=== PATIENT | male | born 1965 | race Caucasian/White ===

== ENCOUNTER → 2016-10-04 | Outpatient (CLI) | payer MEDICAID ==
--- NOTE | 2016-10-04 14:01 | CT ---
EXAMINATION TYPE: CT ChestAbdPelvis w con DATE OF EXAM: 10/04/2016 12:34 PM COMPARISON: Prior CT chest abdomen pelvis 12 April 2016 HISTORY: Colon cancer, observation and evaluation CT DLP: 2132.4 mGycm Automated exposure control for dose reduction was used. CONTRAST: CT scan of the chest, abdomen and pelvis is performed with Oral Contrast and with IV Contrast, patien t injected with 100 mL of Omnipaque 300. FINDINGS: LUNGS: The lungs are grossly clear, there is no concerning parenchymal mass or nodule identified. T here is no pleural effusion or pneumothorax seen. The tracheobronchial tree is patent. There is a po rt present in the right pectoral region with catheter extending via the internal jugular approach to the level of the cavoatrial junction MEDIASTINUM: There are no greater than 1 cm hilar or mediastinal lymph nodes. No pericardial effusi on is seen. AORTA: No significant abnormality is seen. OTHER: No additional significant abnormality is seen. LIVER/GB: Postop changes are stable. The low dense focus within the right lobe is unchanged. Gallblad magaly is absent. PANCREAS: Stable SPLEEN: No longer enlarged as on prior exam ADRENALS: Stable KIDNEYS: Unchanged, the thickening along Gerota's fascia has resolved. REPRODUCTIVE ORGANS: No gross abnormality seen. BOWEL: No significant abnormality is seen. FREE AIR: No Free Air visible. ASCITES: None seen. RETROPERITONEAL ADENOPATHY: No retroperitoneal adenopathy is seen. LYMPH NODES: No greater than 1 cm abdominal or pelvic lymph nodes are appreciated. URINARY BLADDER: No significant abnormality is seen. PELVIC ADENOPATHY: None visualized. OSSEOUS STRUCTURES: No significant abnormality is seen. IMPRESSION: Improvement in splenomegaly. Improved donnell size in the mediastinum.
== END | disposition home or self-care (01) ==
LOC: RADPROMAIN 10:20
PROVIDERS: ATTEND Internal Medicine Hematology & Oncology
DX: Z03.89 Encounter for observation for other suspected diseases and conditions ruled out (principal); R59.0 Localized enlarged lymph nodes; C18.7 Malignant neoplasm of sigmoid colon; R16.1 Splenomegaly, not elsewhere classified
CPT/HCPCS: 71260; 74177; Q9967

== ENCOUNTER → 2017-04-20 | Outpatient (CLI) | payer MEDICAID ==
--- NOTE | 2017-04-20 15:54 | CT ---
EXAMINATION TYPE: CT ChestAbdPelvis w con DATE OF EXAM: 04/20/2017 INDICATION: Patient has no complaints at time of service. Follow up study for history of colon/liver CA. COMPARISON: 10/04/2016, 04/12/2016 CT DLP: 1796 mGycm CONTRAST: Performed with Oral Contrast and with IV Contrast, patient injected with 100 mL of Omnipaque 300. TECHNIQUE: Axial images at 5 mm thick sections. Reconstructed images in the coronal plane. Delayed images through the kidneys. FINDINGS: CT CHEST: There is a port over the right chest. The tip is in the superior vena cava Portion of the thyroid visualized is normal. No suspicious lung nodules or focal infiltrates are present. There is a 1.6 cm transverse dimension density in the pretracheal space. Series 3 image 20. A pretrac heal lymph node measuring 2.1 cm is present. Series 3 image 24. There are some shotty lymph nodes at the aortopulmonic window. The ascending aorta diameter at the level of the main pulmonary artery is 3.1 cm. The main pulmonary artery diameter at the bifurcation is 2.[address] ABDOMEN: Liver: There is a very faint hypodensity within the liver this is smaller and poorly visualized in co mparison with a 2016 examination. This area is poorly visualized on 2017. Sella transverse dimension of approximately 0.7 cm currently which is smaller than the 1.2 cm 2016. Spleen: Normal Pancreas: Normal Adrenal glands: The adrenal glands are normal. Gallbladder: Not identified. Kidneys: No masses are evident. No hydronephrosis is present. No cysts are present. Delayed images were obtained through the kidneys, which remain unremarkable. Aorta: Vascular calcification is within the aorta. Inferior vena cava: Normal. CT PELVIS: Loops of bowel within the abdomen and pelvis are normal. There are loops of bowel which are incom pletely distended or lack oral contrast limiting their evaluation. Appendix: Normal as visualized. Urinary bladder: Normal. Genitourinary structures: Prostate is slightly prominent contains some calcification Osseous structures: No suspicious lytic or sclerotic lesions. IMPRESSIONS: 1. Enlarged mediastinal adenopathy, enlarging from comparison of October 04, 2016. 2. Diminished size of a hypodensity within the superior right lobe liver.
== END | disposition home or self-care (01) ==
LOC: RADPROMAIN 10:01
PROVIDERS: ATTEND Internal Medicine Hematology & Oncology
DX: C18.7 Malignant neoplasm of sigmoid colon (principal); K76.89 Other specified diseases of liver; R59.0 Localized enlarged lymph nodes
CPT/HCPCS: 71260; 74177; Q9967; J1642

== ENCOUNTER → 2017-06-09 | Outpatient (CLI) | payer MEDICAID ==
[~2017-06-09] MED LIST: ALTEPLASE 2 MG VIAL (CATHFLO) IV STA
--- NOTE | 2017-06-09 13:02 | CT ---
EXAMINATION TYPE: CT chest w con DATE OF EXAM: 06/09/2017 COMPARISON: NONE HISTORY: Colon and liver CA, possible mets, prior abn CT CT DLP: 617.6 mGycm Automated exposure control for dose reduction was used. CONTRAST: CT scan of the chest is performed with IV Contrast, patient injected with 100 mL of Omnipaque 300. FINDINGS: LUNGS: Right upper lobe pulmonary mass measuring 2.2 x 2.0 x 2.4 cm may reflect primary bronchogenic carcino ma versus metastatic disease. No additional pulmonary nodules or masses are seen with absolute certai nty. No evidence for volume loss, airspace consolidation or pleural effusion. MEDIASTINUM: High Right paratracheal lymph node is stable at 1.5 cm. New adjacent lymph node measurin g 2.0 cm right paratracheal region region. Low right paratracheal adenopathy measures 2.3 cm versus 2.1 cm previously. Stable small subcentimeter mediastinal lymph nodes. No pericardial effusion is see n. Thoracic aorta is of normal caliber. The heart is not enlarged. UPPER ABDOMEN: Partial hepatectomy changes. No discrete hepatic lesion seen. Hypertrophy of the cauda te lobe. OTHER: No additional significant abnormality is seen. IMPRESSION: 1. New right upper lobe pulmonary mass may reflect primary bronchogenic carcinoma versus solitary met astatic lesion. 2. New right paratracheal adenopathy. Previously described lymph nodes are either stable or minimall y enlarged.
== END | disposition home or self-care (01) ==
LOC: RADPROMAIN 10:55
PROVIDERS: ATTEND Internal Medicine Hematology & Oncology
DX: R91.1 Solitary pulmonary nodule (principal); R59.0 Localized enlarged lymph nodes; C18.7 Malignant neoplasm of sigmoid colon; G62.2 Polyneuropathy due to other toxic agents; T50.995A Adverse effect of other drugs, medicaments and biological substances, initial encounter; Z71.3 Dietary counseling and surveillance
CPT/HCPCS: 96374; 71260; 36415; Q9967; J1642; J2997

== ENCOUNTER 2017-07-13 12:12 | Day surgery (SDC) | payer MEDICAID ==
[2017-07-08 11:16] VITALS: BMI 35.2
[~2017-07-13 12:12] MED LIST changes: +ALBUTEROL NEB (CONC) 2.5 MG/0.5 ML INHALATION ONE; -ALTEPLASE 2 MG VIAL (CATHFLO) IV STA; +ATROPINE SULFATE 0.4 MG/ML 1 ML VIAL IM ONE; +LACTATED RINGERS 1,000 ML IV ONE; +LACTATED RINGERS 1,000 ML IV SCH; +LIDOCAINE 2% (PF) 20 MG/ML 2 ML AMP INHALATION ONE
[2017-07-13] MEDS ORDERED: LIDOCAINE 1% 20 ML VIAL (10MG/ML) FOR IV START INTRADERMA ONE (12:23)
[2017-07-13] MEDS ORDERED: LIDOCAINE 1% INJ 10MG/ML (20 ML MDV) ONE (14:16)
[2017-07-13] MEDS ORDERED: NEOSTIGMINE 1 MG/ML 10 ML VIAL ONE (14:16)
[2017-07-13] MEDS ORDERED: ROCURONIUM BROMIDE 10 MG/ML 10 ML VIAL IV ONE (14:16)
[2017-07-13] MEDS ORDERED: SUCCINYLCHOLINE CHLORIDE 100 MG/5 ML SYR IV ONE (14:16)
[2017-07-13] MEDS ORDERED: PROPOFOL 10 MG/ML 20 ML VIAL IV ONE (14:16)
[2017-07-13] MEDS ORDERED: MIDAZOLAM 2 MG/2 ML VIAL ONE (14:16)
[2017-07-13] MEDS ORDERED: GLYCOPYRROLATE 0.2 MG/ML 2 ML VIAL ONE (14:16)
--- NOTE | 2017-07-13 14:19 | CT ---
EXAMINATION TYPE: CT Chest wo con Veran Protocol DATE OF EXAM: 07/13/2017 COMPARISON: 06/09/2017 HISTORY: 51-year-old male Pre surgical scan TECHNIQUE: Contiguous axial scanning of the chest without IV contrast. Veran protocol was utilized w ith both inspiration and expiration for purposes of endobronchial navigation. Coronal and sagittal re constructions performed. CT DLP: 604 mGycm Automated exposure control for dose reduction was used. FINDINGS: Radiofrequency airways are placed over the mid and left chest. Right anterior chest wall injection po rt with catheter tip at the cavoatrial junction. Heart normal size without pericardial effusion. Aorta normal caliber with conventional arch vessel branching anatomy. Redemonstrated mediastinal lymphadenopathy measuring up to 2.2 cm in the paratracheal region. Right upper lobe mass measures 3.2 x 2.0 cm versus 2.7 x 1.6 cm on 06/09/2017. No suspicious satellite nodule seen. No consolidation or pleural effusion. Status post right hepatectomy with hypertrophy of the left liver lobe and caudate. Adrenal glands are clear. Bones: No osseous destructive process. IMPRESSION: 1. IMAGING PERFORMED FOR PURPOSES OF ENDOBRONCHIAL NAVIGATION. 2. THE PATIENT'S RIGHT UPPER LOBE MASS IS SLIGHTLY LARGER NOW MEASURING 3.2 CM VERSUS 2.7 CM ON 2017. 3. REDEMONSTRATED RIGHT PARATRACHEAL LYMPHADENOPATHY MEASURING UP TO 2.2 CM.
[2017-07-13 15:32] VITALS: TEMP 97.4
--- NOTE | 2017-07-13 15:54 | XR ---
EXAMINATION TYPE: XR chest 1V portable DATE OF EXAM: 07/13/2017 COMPARISON: CT chest 07/13/2017 HISTORY: Status post transbronchial biopsies right upper lobe TECHNIQUE: Single frontal view of the chest is obtained. FINDINGS: Patient is rotated. There is no pneumothorax or pleural effusion. Lung volumes are low. Car diomediastinal silhouette, pulmonary vascularity and shaina not significantly changed. Patchy density p ersists in the right upper lobe. There are overlying cardiac leads. Port-A-Cath is noted in the right pectoral region, distal tip at the cavoatrial junction level. IMPRESSION: No evident complication status post right upper lobe lung biopsy.
[2017-07-13 16:36] VITALS: RESP 18
[2017-07-13 16:38] VITALS: BP 120/82; PULSE 71
[2017-07-13 18:48] LABS: Appearance,BF Hazy; Color,BF Colorless; Nucleated Cells, Body Fluid 25 /uL; RBC, Body Fluid 655 /uL
[2017-07-13 18:50] LABS: Mononuclear WBC,Body Fluid 90 %; Polynuclear WBC,Body Fluid 10 %
--- NOTE | 2017-07-13 19:14 | PCN ---
PROCEDURE NOTE PROCEDURE: Navigational bronchoscopy. REASON FOR DOING PROCEDURE/PREOPERATIVE DIAGNOSIS: New right upper lobe mass. POSTOPERATIVE DIAGNOSIS: New right upper lobe mass. DESCRIPTION OF PROCEDURE: There was informed consent. There was universal timeout. The patient's procedure was done on the operating room side of [facility]. It was done under general anesthesia. The anesthesiologists were LEONEL and Dr. Valadez. The operators were Dr. Crow and Dr. Baez. It was done in room #1. After the patient was adequately sedated and under the effects of general anesthesia, the bronchoscope was inserted through the bronchoscope adapter connected to the endotracheal tube. We were able to localize the lesion via the Veran electromagnetic navigational bronchoscope. The lesion was in the right upper lobe. Multiple transbronchial biopsies were done initially. Next, needle biopsies were done in the right upper lobe. Finally, there was brushing in the right upper lobe. We completed the procedure by doing washes in the right upper lobe. The patient tolerated the procedure well. There was minimal bleeding. There were no immediate complications. A chest x-ray was ordered. The patient will be recovered. The specimens will go to the laboratory for analysis. Specimens include brushes, right upper lobe, washings, right upper lobe, transbronchial biopsies, right upper lobe, and needle biopsies, right upper lobe. MMODL / IJN: [id number] /
== END 2017-07-13 17:04 | disposition home or self-care (01) ==
LOC: ORWHC2ENDO 12:12
PROVIDERS: ATTEND Internal Medicine Critical Care Medicine
DX: R91.8 Other nonspecific abnormal finding of lung field (principal); R59.0 Localized enlarged lymph nodes; Z98.0 Intestinal bypass and anastomosis status; Z90.49 Acquired absence of other specified parts of digestive tract; Z85.038 Personal history of other malignant neoplasm of large intestine; Z85.05 Personal history of malignant neoplasm of liver
CPT/HCPCS: 94640; 87798 ×3; 87496; 87498; 87529; 88104; 88108; 88305; 89050; 87252; 87502; 87634; 87070; 87205; 87116; 87102; 87206; 71045; 71250; 31629; 31623; 31627; J2250; J0461; J2710; J2001 ×2; J0330; J2704; 31624; 31625

== ENCOUNTER → 2017-07-23 | Outpatient (CLI) | payer MEDICAID ==
--- NOTE | 2017-07-25 18:05 | PE ---
EXAMINATION TYPE: PET CT fusion skull to thigh DATE OF EXAM: 07/23/2017 COMPARISON: CT chest 07/13/2017 Prior PET/CT: There are no prior PET CTs at this location available. No p riors are in PACS or [place]. HISTORY: Colon cancer TECHNIQUE: Following the intravenous administration of 11.878 mCi of F-18 FDG, whole body images are performed from the skull base to the midthigh. Images are reviewed on the computer in the coronal, axial, and sagittal planes. Reconstructed rotating images are created on independent workstation and reviewed on the computer. A localization and attenuation correction CT is performed in conjunction with the PET scan. DLP: 515.65 mGycm SCAN: Ordered as Subsequent. Blood glucose: 77 mg/dL Average Mediastinum SUV: 1.72 Average Liver SUV: 2.77 FINDINGS: NECK: No abnormal uptake THORAX: Mass in the right upper lobe has an SUV value of 8.21. PET image 86. There is vague uptake within an enlarged right paratracheal lymph node. This has elevated SUV of 4.38 suspicious for metastatic disease. Uptake is also noted in the second enlarged pretracheal lymph nod e measuring 3.5 also suspicious for metastatic disease. ABDOMEN: No abnormal uptake PELVIS: No abnormal uptake OSSEOUS STRUCTURES: No abnormal uptake LOCALIZATION CT: There is a 2.2 cm lymph node in the pretracheal space. An adjacent 1.9 cm lymph node is present. The ascending thoracic aorta at the level of main pulmonary artery is 3.2 cm. In the bif urcation is 2.2 cm. There is a right upper lobe mass which and mediastinal lymph nodes is estimated t o measure 4.2 x 2.1 cm. Coronary artery calcification is present. COMPARISON: Right upper lobe mass is stable from the 07/13/[address] Right paratracheal lymp hadenopathy is stable. IMPRESSION: 1. Uptake within the solitary pulmonary nodule in the right midlung compatible with neoplasm. Primary and metastatic lesions could be considered. 2. Milder uptake is within the enlarged lymph nodes within the mediastinum suspicious for metastatic disease.
== END | disposition home or self-care (01) ==
LOC: RADPETMAIN 11:08
PROVIDERS: ATTEND Internal Medicine Hematology & Oncology
DX: C18.7 Malignant neoplasm of sigmoid colon (principal); R91.1 Solitary pulmonary nodule; R59.1 Generalized enlarged lymph nodes
CPT/HCPCS: 78815; A9552

== ENCOUNTER → 2017-08-31 | Outpatient (CLI) | payer MEDICAID ==
[2017-08-31 14:47] VITALS: BP 119/78; PULSE 91; RESP 18; TEMP 97.9
[2017-08-31 15:02] LABS: Basophils % (A) 1 %; Eosinophils # (A) 0.2 k/uL (0-0.7); Eosinophils % (A) 3 %; HCT 49.8 % (39.0-53.0); HGB 16.9 gm/dL (13.0-17.5); Lymphocytes # (A) 2.3 k/uL (1.0-4.8); Lymphocytes % (A) 42 %; MCH 31.7 pg (25.0-35.0); MCV 93.1 fL (80.0-100.0); Mean Platelet Volume 7.8; Monocytes # (A) 0.5 k/uL (0-1.0); Monocytes % (A) 8 %; Neutrophils # (A) 2.4 k/uL (1.3-7.7); Neutrophils % (A) 43 %; Platelet Count 194 k/uL (150-450); RBC 5.35 m/uL (4.30-5.90); RDW 12.8 % (11.5-15.5); WBC 5.5 k/uL (3.8-10.6)
== END | disposition home or self-care (01) ==
LOC: PROCWHC3 14:21
PROVIDERS: ATTEND Internal Medicine Hematology & Oncology
DX: C18.7 Malignant neoplasm of sigmoid colon (principal)
CPT/HCPCS: 85025; 36591; J1642

== ENCOUNTER → 2017-11-25 | Outpatient (CLI) | payer MEDICAID ==
[2017-11-25 11:34] LABS: Blood Urea Nitrogen 19 mg/dL (9-20)
--- NOTE | 2017-11-25 13:30 | CT ---
EXAMINATION TYPE: CT ChestAbdPelvis w con DATE OF EXAM: 11/25/2017 COMPARISON: PET/CT July 23, 2017. CT chest abdomen and pelvis April 20, 2017. HISTORY: Patient has no complaints with history of color CA with mets to the liver and lung. Post rig ht-sided hepatectomy. CT DLP: 2034.2 mGycm. Automated Exposure Control for Dose Reduction was Utilized. CONTRAST: CT scan of the thorax, abdomen and pelvis is performed with oral and with IV Contrast, patient inject ed with 100 mL of Isovue 300. FINDINGS: LUNGS: There is a smaller slightly lobulated lesion right suprahilar level measuring 1.9 x 0.6 cm axi al image 24 significantly improved from PET/CT with measurements of approximately 4.2 x 2.1 cm axial image 87. No new nodules or masses are present. No pleural effusion or pneumothorax is identified. MEDIASTINUM: There is persistent but diminished size right paracarinal lymph node measuring 1.2 x 1.1 cm axial image 23 versus roughly 1.8 x 1.9 cm axial image 87 PET/CT. Superior to this right paratra cheal lymph node measures 1.2 x 0.9 cm current study image 20 versus 2.8 x 1.[address] study image 80. Prominent subcentimeter posterior right paratracheal lymph node superior to this axial imag e 14 is stable. No new greater than 1 cm adenopathy is present. No cardiomegaly or pericardial effusi on is seen. OTHER: There is stable right internal jugular Mediport catheter. LIVER/GB: Surgical changes from partial right-sided liver resection or hepatectomy are redemonstrated . Gallbladder is not visualized and presumed surgically absent. PANCREAS: No significant abnormality is seen. SPLEEN: No significant abnormality is seen. ADRENALS: No significant abnormality is seen. KIDNEYS: No significant abnormality is seen. BOWEL: Oral contrast reaches level of anus. There is somewhat redundant sigmoid colon. There is no landin spicious small or large bowel dilatation. Normal contrast-filled terminal ileum is identified. Append ix is unremarkable from posterior aspect of cecum. Nonspecific soft tissue medial aspect of cecum axi al image 87 could reflect residual tumor has not been treated versus prominence from incomplete diste ntion, correlate clinically. GENITAL ORGANS: No gross abnormality seen. LYMPH NODES: No greater than 1cm abdominal or pelvic lymph nodes are appreciated. OSSEOUS STRUCTURES: Some facet arthropathy lower lumbar levels is redemonstrated. OTHER: No significant additional abnormality is seen. IMPRESSION: Positive treatment response in the thorax as detailed above.
== END | disposition home or self-care (01) ==
LOC: RADPROMAIN 10:55
PROVIDERS: ATTEND Internal Medicine Hematology & Oncology
DX: C18.7 Malignant neoplasm of sigmoid colon (principal)
CPT/HCPCS: 82565; 84520; 71260; 74177; J1642; Q9967

== ENCOUNTER → 2018-02-23 | Outpatient (CLI) | payer MEDICAID ==
[2018-02-23 11:51] LABS: Blood Urea Nitrogen 14 mg/dL (9-20)
--- NOTE | 2018-02-23 14:45 | CT ---
EXAMINATION TYPE: CT chest w con DATE OF EXAM: 02/23/2018 COMPARISON: 11/25/2017 HISTORY: colon ca, lung mass CT DLP: 756 mGycm, Automated exposure control for dose reduction was used. CONTRAST: Performed injected with 100 mL of Isovue 300. TECHNIQUE: Axial images were obtained at 5 mm thick sections. Reconstructed images are reviewed on [employer] computer in the coronal plane. FINDINGS: Portion of the thyroid visualized is normal. There is a 1.3 x 1.3 cm lobular density in the right apex. Series 3 image 19. This is enlarged from p rior. There is an enlarged pretracheal lymph node measuring 1.1 cm. Series 3 image 20. This was prese nt previously. Remaining mediastinal adenopathy is not enlarged. No suspicious hilar adenopathy is evident. Axillar y regions appear normal. The ascending aorta diameter at the level of the main pulmonary artery is 3. 0 cm. The main pulmonary artery diameter at the bifurcation is 2.[address] sections are obtained through the upper abdomen. Abdomen is essentially unremarkable. Mild to moderate fatty infiltration liver may be present. IMPRESSIONS: 1. Enlarging lobular nodule right apex suspicious for enlarging metastasis. 2. Spinal lymph node present previously slightly less prominent than prior.
== END | disposition home or self-care (01) ==
LOC: RADPROMAIN 10:37
PROVIDERS: ATTEND Internal Medicine Hematology & Oncology
DX: C18.7 Malignant neoplasm of sigmoid colon (principal); R91.1 Solitary pulmonary nodule
CPT/HCPCS: 82565; 84520; 71260; 36415; J1642; Q9967

== ENCOUNTER → 2018-02-25 | Outpatient (CLI) | payer MEDICAID ==
--- NOTE | 2018-02-26 14:58 | PE ---
EXAMINATION TYPE: PET CT fusion skull to thigh DATE OF EXAM: 02/25/2018 COMPARISON: CT chest abdomen pelvis 11/25/2017 Prior PET/CT: 07/23/2017 HISTORY: Colon cancer, liver cancer TECHNIQUE: Following the intravenous administration of 12.33 mCi of F-18 FDG, whole body images are performed from the skull base to the midthigh. Images are reviewed on the computer in the coronal, a xial, and sagittal planes. Reconstructed rotating images are created on independent workstation and reviewed on the computer. A localization and attenuation correction CT is performed in conjunction with the PET scan. DLP: 531.79 mGycm SCAN: Subsequent Blood glucose: 103 mg/dL Average Mediastinum SUV: 1.39 Average Liver SUV: 2.23 FINDINGS: NECK: There is some uptake within the region of the distal optic nerves bilaterally. This is greater on the right with an SUV value of 8.73. On the left this measures approximately 7.13. PET image 17. Recommend MRI with contrast of the orbits for closer evaluation. No corresponding abnormality on the CT examination is evident. Radiotracer distribution through the neck is otherwise normal. THORAX: There is a focus of radiotracer accumulation within the irregular soft tissue density of the right upper lobe. This has an SUV value of 5.86 compatible with neoplasm. PET image 95. Previous SUV value of 8.21. No suspicious mediastinal uptake is evident. ABDOMEN: No abnormal uptake. No suspicious hepatic uptake to suggest primary or metastatic liver canc er by PET scan. PELVIS: No abnormal uptake OSSEOUS STRUCTURES: No abnormal uptake LOCALIZATION CT: The mass within the right suprahilar region measures 1.0 x 1.4 cm on mediastinal win dows. Suspicious enlarged mediastinal evident. Ascending thoracic aorta at the main pulmonary artery is 3.2 cm. Main pulmonary bifurcation is 2.8 cm. Small subcarinal lymph node measuring 0.7 cm does no t have abnormal uptake. Note is made of a periumbilical hernia containing loops of colon. Wider addit ional anterior wall hernias present containing loop of colon inferior to the umbilicus. COMPARISON: Right apical mass is increased in size from the comparison of November 25, 2017. The mass at the right apex is significantly diminished from the 07/23/2017 PET scan. Uptake within the posterior r ibs may have been present previously. IMPRESSION: 1. Abnormal uptake within the right suprahilar lung. This is diminished in size and intensity from th e comparison of June 2017. 2. There appears to be some focal uptake within the distal optic nerves bilaterally of uncertain clin ical significance. Recommend MRI of the orbits with contrast for additional evaluation.
== END | disposition home or self-care (01) ==
LOC: RADPETMAIN 07:56
PROVIDERS: ATTEND Internal Medicine Hematology & Oncology
DX: C18.7 Malignant neoplasm of sigmoid colon (principal); R94.2 Abnormal results of pulmonary function studies
CPT/HCPCS: 78815; A9552

== ENCOUNTER → 2018-10-03 | Outpatient (CLI) | payer MEDICAID ==
--- NOTE | 2018-10-04 11:16 | CT ---
EXAMINATION TYPE: CT ChestAbdPelvis w con DATE OF EXAM: 10/03/2018 COMPARISON: Outside CT dated July 24, 2018 HISTORY: follow up colon cancer CT DLP: 2019.4 mGycm CONTRAST: CT scan of the chest, abdomen and pelvis is performed with Oral Contrast and with IV Contrast, patien t injected with 100 mL of [address]vue 300. [address] Chest: LUNGS: Right upper lobectomy changes redemonstrated. Postoperative low-density fluid collection adjac ent to the surgical clips right upper lobe persists and is smaller in size and currently measures 2.6 x 2.4 cm versus 6.6 x 5.0 x 6.2 cm previously. No new nodules or masses are demonstrated. Mild hyper inflation left lung. MEDIASTINUM: Right paratracheal adenopathy persists and measures 1.5 cm in greatest dimension versus 1.6 cm previously. Right tracheobronchial lymph node measures 1.0 cm versus 8 mm previously. Subcarin al lymph node measures 8 mm short axis versus 1.4 cm previously. HILAR STRUCTURES: No evidence for mass. No hilar adenopathy is appreciated. OTHER: No significant abnormality. CONTRAST CT ABDOMEN AND PELVIS FINDINGS: LIVER/GB: Partial right hepatectomy changes redemonstrated. Compensatory hypertrophy left hepatic l obe and caudate lobe. The gallbladder surgically absent. No space occupying hepatic lesion. Biliary tree is of normal caliber. PANCREAS: No inflammation. No distinct mass. SPLEEN: No splenic enlargement. No lesion seen. ADRENALS: No nodule. No thickening. KIDNEYS/BLADDER: No hydronephrosis. No nephrolithiasis. No distinct renal mass. BOWEL: Normal appendix. Normal bowel caliber. No inflammation. GENITAL ORGANS: Prostate gland enlargement again noted. LYMPH NODES: No greater than 1cm abdominal or pelvic lymph nodes are appreciated. AORTA: No significant abnormality. OSSEOUS STRUCTURES: No significant abnormality is seen. OTHER: Ventral hernias redemonstrated and appear to be stable. No evidence for incarceration or stran gulation at this time. IMPRESSION: 1. Postsurgical changes of right upper lobectomy with postoperative fluid collection again noted reynolds eva appears to be smaller in size. 2. Small loculated right basilar pleural effusion persists. 3. Persistent and slightly improved mediastinal adenopathy. 4. Postoperative changes of the partial right hepatectomy with compensatory hypertrophy of the remain ing liver. 5. No evidence for metastatic disease to the abdomen or pelvis.
== END ==
LOC: RADPROMAIN 06:55
PROVIDERS: ATTEND Internal Medicine Hematology & Oncology
DX: Z03.89 Encounter for observation for other suspected diseases and conditions ruled out (principal); R59.0 Localized enlarged lymph nodes
CPT/HCPCS: 71260; 74177; J1642; Q9967

== ENCOUNTER → 2019-01-30 | Outpatient (CLI) | payer MEDICAID ==
--- NOTE | 2019-01-30 11:25 | CT ---
EXAMINATION TYPE: CT ChestAbdPelvis w con DATE OF EXAM: 01/30/2019 COMPARISON: 10/03/2018 and 02/25/2018 HISTORY: 53-year-old male follow-up colon cancer TECHNIQUE: Contiguous axial scanning of the chest, abdomen, and pelvis performed with IV Contrast, pa tient injected with 100 mL of Isovue 300. Delayed images through the kidneys were obtained. Coronal/s agittal reconstructions performed. CT DLP: 2493 mGycm Automated exposure control for dose reduction was used. FINDINGS: CHEST: Right anterior chest wall injection port with catheter tip at the cavoatrial junction. Heart normal size without pericardial effusion. Aorta normal caliber with conventional branching anatomy. Upper right paratracheal lymph node measures 1 cm versus 1.1 cm, previously. Lower right paratracheal lymph node measures 1.6 cm versus 9 mm, previously. Postsurgical material in the right hilum and right suprahilar level with focal area of low density no dularity having decreased in size now measuring only 1.6 cm versus 2.6 cm, previously. Additional nonenlarged mediastinal lymph nodes are unchanged. No consolidation or pleural effusion. ABDOMEN: Tiny hernia. Partial right hepatectomy demonstrated. Portal venous system is patent. No biliary ductal dilatation. A couple prominent upper retroperitoneal lymph nodes measure up to 8 mm, unchanged. Otherwise, no mes enteric or retroperitoneal lymphadenopathy. Gallbladder surgically absent. Adrenal glands, right kidney, spleen, and pancreas appear within jenifer l limits. Punctate 2 mm nonobstructive left renal calculus. Tiny fatty umbilical hernia with some postlaparotomy changes along the anterior midline. No dilated small bowel, free fluid, or free air. Normal appendix. Oral contrast progressed to the sigmoid colon. [id number] stool. No pericoloni c inflammatory change. Pelvis: Mild circumferential bladder wall thickening. Pelvic lymph nodes. No abnormal fluid collection in the pelvis or pelvic lymphadenopathy. BONES: Some facet arthropathy lower lumbar spine. The osseous destructive process. Postthoracotomy change po sterior right hemithorax. IMPRESSION: 1. RIGHT-SIDED THORACOTOMY CHANGE AND RIGHT UPPER LOBE WEDGE RESECTION. NODULAR AREA ALONG THE RIGHT HILUM/SUPRAHILAR LEVEL IS SMALLER MEASURING 1.6 CM VERSUS 2.6 CM, PREVIOUSLY. IMPROVING POSTSURGICAL CHANGE VERSUS TREATMENT RESPONSE. 2. A LOWER RIGHT PARATRACHEAL LYMPH NODE HAS INCREASED IN SIZE NOW MEASURING 1.6 CM VERSUS 9 MM, PREV IOUSLY. CLOSE FOLLOW-UP RECOMMENDED. THE OTHER HIGHER RIGHT PARATRACHEAL LYMPH NODE IS ABOUT STABLE A T 1 CM. 3. PRIOR PARTIAL RIGHT HEPATECTOMY. NO OTHER SUSPICIOUS FINDINGS OF METASTATIC DISEASE.
== END | disposition home or self-care (01) ==
LOC: RADPROMAIN 07:58
PROVIDERS: ATTEND Internal Medicine Hematology & Oncology
DX: J39.8 Other specified diseases of upper respiratory tract (principal); C18.7 Malignant neoplasm of sigmoid colon
CPT/HCPCS: 71260; 74177; J1642; Q9967

== ENCOUNTER → 2019-05-01 | Outpatient (CLI) | payer MEDICAID ==
[2019-05-01 12:00] LABS: Basophils % (A) 1 %; Eosinophils # (A) 0.1 k/uL (0-0.7); Eosinophils % (A) 2 %; HGB 16.8 gm/dL (13.0-17.5); Lymphocytes # (A) 1.4 k/uL (1.0-4.8); Lymphocytes % (A) 28 %; MCH 33.4 pg (25.0-35.0); MCV 95.3 fL (80.0-100.0); Mean Platelet Volume 6.7; Monocytes # (A) 0.5 k/uL (0-1.0); Monocytes % (A) 9 %; Neutrophils # (A) 2.9 k/uL (1.3-7.7); Neutrophils % (A) 58 %; Platelet Count 208 k/uL (150-450); RBC 5.04 m/uL (4.30-5.90); RDW 12.4 % (11.5-15.5)
[2019-05-01 12:06] LABS: ALT 66 U/L (21-72); AST 42 U/L (17-59); African American GFR (CKD) >90 (>60 ml/min/1.73 sqM); Albumin 4.2 g/dL (3.5-5.0); Alkaline Phosphatase 86 U/L (38-126); Anion Gap 8 mmol/L; Blood Urea Nitrogen 11 mg/dL (9-20); Calcium 9.4 mg/dL (8.4-10.2); Carbon Dioxide 26 mmol/L (22-30); Chloride 108 mmol/L (98-107); Glucose 97 mg/dL (74-99); Non-African American GFR(CKD) 86 (>60 ml/min/1.73 sqM); Potassium 4.4 mmol/L (3.5-5.1); Sodium 142 mmol/L (137-145); Total Bilirubin 1.6 mg/dL (0.2-1.3); Total Protein 7.2 g/dL (6.3-8.2)
--- NOTE | 2019-05-01 15:12 | CT ---
EXAMINATION TYPE: CT chest w con DATE OF EXAM: 05/01/2019 COMPARISON: 01/30/2019 and 10/03/2018 HISTORY: 53-year-old male colon cancer and lung cancer. TECHNIQUE: Contiguous axial scanning of the chest after the administration of 100 mL of Isovue 300. Coronal/sagittal reconstructions performed. CT DLP: 747mGycm. Automatic exposure control utilized for a dose reduction. FINDINGS: Right anterior chest wall injection port with catheter tip at the cavoatrial junction. Heart normal size without pericardial effusion. Aorta normal caliber with conventional branching anatomy. Stable 1.6 cm right tracheobronchial angle lymph node and stable 9 mm lymph node along the right trac heoesophageal recess superior mediastinum. Postsurgical changes of right upper lobectomy. Associated volume loss in the right hemithorax. Some m ild 1.2 cm soft tissue thickening along the right suprahilar region, axial image 10 is stable to slig htly smaller at 1.6 cm, previously. No consolidation or pleural effusion. Tiny hiatal hernia. Postsurgical changes of prior right-sided hepatic segmentectomy Bones: No osseous destructive process. IMPRESSION: 1. Status post right upper lobectomy. Continued decrease in size of the soft tissue thickening along the right suprahilar region. 2. Stable 1.6 cm right tracheobronchial angle lymph node and 9 mm lymph node right tracheoesophageal recess. 3. No new thoracic lymphadenopathy or suspicious pulmonary nodule. 4. Previous right hepatic segmentectomy. Underlying hepatic steatosis.
== END | disposition home or self-care (01) ==
LOC: RADPROMAIN 11:09
PROVIDERS: ATTEND Internal Medicine Hematology & Oncology
DX: C34.90 Malignant neoplasm of unspecified part of unspecified bronchus or lung (principal); C18.7 Malignant neoplasm of sigmoid colon; G62.2 Polyneuropathy due to other toxic agents; Z71.3 Dietary counseling and surveillance; Z90.2 Acquired absence of lung [part of]
CPT/HCPCS: 80053; 82378; 85025; 71260; 36415; J1642; Q9967

== ENCOUNTER → 2019-09-14 | Outpatient (CLI) | payer BC, MEDICAID ==
--- NOTE | 2019-09-17 08:40 | PE ---
EXAMINATION TYPE: PET CT fusion skull to thigh DATE OF EXAM: 09/14/2019 COMPARISON: Most recent whole body CT January 30, 2019 and older CTs. Prior PET/CT February 25 and older studies. HISTORY: Colorectal cancer progress study. Originally diagnosed 2015 now stage IV with lung and live r metastatic disease. Completed chemotherapy February 2019. TECHNIQUE: Following the intravenous administration of 10.74 mCi of F-18 FDG, whole body images are performed from the skull base to the midthigh. Images are reviewed on the computer in the coronal, a xial, and sagittal planes. Reconstructed rotating images are created on independent workstation and reviewed on the computer. A noncontrast CT is performed in conjunction with the PET scan. SCAN: Subsequent Scan FINDINGS: SKULL BASE AND NECK: No new areas of abnormal hypermetabolic uptake. CHEST, MEDIASTINUM, AND HILAR REGION: Since most recent PET/CT interval surgical change from right up per lung partial pneumonectomy with new sutures and clips. No suspicious new or recurrent hypermetabo lic nodules. However corresponding to most recent CT there is persistent suspicious right tracheobron chial lymph node axial image 89 slightly hyperdense in appearance measuring 2.0 x 1.5 cm with mild hy permetabolic uptake, max SUV is 3.37 on current study. No additional areas of suspicious adenopathy or hypermetabolic uptake in the thorax. ABDOMEN AND PELVIS: Partial right-sided hepatectomy changes redemonstrated. No new areas of abnormal hypermetabolic uptake within the liver. There is however new hypermetabolic soft tissue lesion in the lower anterior intercostal space axial image 131 oval in shape measuring roughly 3.0 x 1.4 cm with m ax SUV of 6.73. No additional areas of abnormal hypermetabolic uptake. OSSEOUS STRUCTURES: No focus of abnormal hypermetabolic uptake anterior lower right rib near soft tis rodger lesion axial image 127 has max SUV 5.[address] correlate. No additional definite areas of abnormal hypermetabolic uptake in the osseous structures. OTHER CT: Stable right internal jugular Mediport catheter. Scattered pelvic phleboliths. Caudate lobe hypertrophy. IMPRESSION: Since most recent PET/CT. Interval right-sided partial pneumonectomy. Persistent enlarged right tracheobronchial lymph node since October 03, 2018 with slight hypermetabolic uptake, active neopla sm at this level cannot be excluded. Partial hepatectomy changes redemonstrated. No new intrahepatic mass. There is however new hypermetabolic soft tissue nodule in the intercostal space worrisome for n ew metastatic focus. CT-guided biopsy for tissue analysis can be performed.
== END | disposition home or self-care (01) ==
LOC: RADPETMAIN 14:22
PROVIDERS: ATTEND Internal Medicine Hematology & Oncology
DX: C18.7 Malignant neoplasm of sigmoid colon (principal); Z90.2 Acquired absence of lung [part of]; Z90.49 Acquired absence of other specified parts of digestive tract; R91.1 Solitary pulmonary nodule
CPT/HCPCS: 78815; A9552

== ENCOUNTER → 2019-10-15 | Outpatient (CLI) | payer BC | END | disposition home or self-care (01) | LOC: LABWHC1 08:52 | PROVIDERS: ATTEND Internal Medicine Hematology & Oncology | DX: Z11.59 Encounter for screening for other viral diseases (principal) | CPT/HCPCS: 87635 ==

== ENCOUNTER 2019-10-17 08:06 | Day surgery (SDC) | payer BC ==
[2019-10-17 08:30] VITALS: TEMP 97.8
[2019-10-17 09:45] VITALS: BP 119/80; PULSE 69; RESP 20
--- NOTE | 2019-10-17 10:59 | US ---
EXAMINATION TYPE: US biopsy soft tissue/muscle DATE OF EXAM: 10/17/2019 HISTORY: Intercostal mass. FINDINGS: Maximal barrier technique was utilized. Hand hygiene achieved with alcohol-based hand rub. The skin overlying a suitable path to the patient's mass in the [anterior intercostal space on the r ight] was localized with ultrasound and the overlying skin prepped and draped. Ultrasound was utiliz ed with sterile technique. Lidocaine was used for local anesthesia. A skin arleen was made with a sca lpel. An 18-gauge needle was advanced under direct ultrasound guidance and core specimen obtained of the mass. Single pass was made. Specimen submitted in formalin to Pathology. Following the procedu re, hemostasis achieved and the patient is discharged in stable condition without complication. IMPRESSION:STATUS POST ULTRASOUND GUIDED CORE BIOPSY OF right intercostal MASS, PATHOLOGY IS PENDING. THIS PROCEDURE IS PERFORMED BY THE UNDERSIGNED.
== END 2019-10-17 09:55 | disposition home or self-care (01) ==
LOC: RADPROMAIN 08:06
PROVIDERS: ATTEND Internal Medicine Hematology & Oncology
DX: C79.89 Secondary malignant neoplasm of other specified sites (principal); C18.9 Malignant neoplasm of colon, unspecified
CPT/HCPCS: 20206; 76942; 88305; 88341; 88342

== ENCOUNTER 2020-09-03 12:10 | Emergency (ER) | payer BC ==
[2020-09-03] MEDS ORDERED: MORPHINE SULFATE 4 MG/ML SYRINGE IV STA (12:46)
--- NOTE | 2020-09-03 12:51 | ED ---
General Adult HPI - General Chief complaint: Chest Pain Stated complaint: Chest Pain, Possible blod clot Time Seen by Provider: 09/03/20 12:37 Source: patient, RN notes reviewed, old records reviewed Mode of arrival: ambulatory Limitations: no limitations - History of Present Illness Initial comments: 54-year-old male history of metastatic colon cancer presented for evaluation of right lateral chest pain. Patient states that he had previous radiation to his right lateral ribs secondary to metastatic colon cancer and he has intermittent pain on the right from time to time. He states that about one week ago he did do some increased activity and may have aggravated this pain. He was sent in by his oncologist to rule out pulmonary embolism. He denies significant dyspnea. Denies fever. He had recent gamma knife on a brain lesion about one week ago. He denies any issues with this procedure. No central chest pain. No lower extremity pain or swelling. No fever. - Related Data Home Medications Medication Instructions Recorded Confirmed Acetaminophen Tab [Tylenol Tab] 1,000 mg PO Q4H PRN 09/03/20 09/03/20 Gabapentin [Neurontin] 100 mg PO BID 09/03/20 09/03/20 Ondansetron [Zofran] 4 - 8 mg PO Q8H PRN 09/03/20 09/03/20 Prochlorperazine [Compazine] 10 mg PO Q8H PRN 09/03/20 09/03/20 dexAMETHasone [Dexamethasone] 4 mg PO DAILY 09/03/20 09/03/20 levETIRAcetam [Keppra] 500 mg PO BID 09/03/20 09/03/20 Allergies Allergy/AdvReac Type Severity Reaction Status Date / Time ibuprofen Allergy Rash/Hives Verified 09/03/20 15:12 Review of Systems ROS Statement: Those systems with pertinent positive or pertinent negative responses have been documented in the HPI. ROS Other: All systems not noted in ROS Statement are negative. Past Medical History Past Medical History: Cancer Additional Past Medical History / Comment(s): Hx of Stage 4 CA Colon 2015; lung mass--metastatic colon cancer per patient, gamma ray radiation. History of Any Multi-Drug Resistant Organisms: None Reported Past Surgical History: Bowel Resection, Cholecystectomy Additional Past Surgical History / Comment(s): 2/3 of liver removed, Past Anesthesia/Blood Transfusion Reactions: No Reported Reaction Past Psychological History: No Psychological Hx Reported Smoking Status: Never smoker Past Alcohol Use History: Rare Past Drug Use History: None Reported - Past Family History Mother Family Medical History: Cancer Additional Family Medical History / Comment(s): Ovarian CA Father Family Medical History: Cancer Additional Family Medical History / Comment(s): Prostate CA General Exam Limitations: no limitations General appearance: alert, in no apparent distress Head exam: Present: atraumatic, normocephalic Eye exam: Present: normal appearance, PERRL ENT exam: Present: normal exam Neck exam: Present: normal inspection. Absent: tenderness, meningismus Respiratory exam: Present: normal lung sounds bilaterally, chest wall tenderness (Right mid lateral and anterior tenderness to palpation). Absent: respiratory distress, wheezes, rhonchi, stridor Cardiovascular Exam: Present: regular rate, normal rhythm GI/Abdominal exam: Present: soft. Absent: distended, tenderness, guarding, rebound Extremities exam: Present: normal inspection, normal capillary refill. Absent: pedal edema Neurological exam: Present: alert, oriented X3, CN II-XII intact. Absent: motor sensory deficit Psychiatric exam: Present: normal affect, normal mood Skin exam: Present: warm, dry, intact. Absent: cyanosis, diaphoretic Course Vital Signs 09/03/20 09/03/20 09/03/20 12:19 13:30 14:00 Temperature 98.6 F Pulse Rate 99 91 87 Respiratory 17 22 20 Rate Blood Pressure 154/102 133/88 133/95 O2 Sat by Pulse 96 96 97 Oximetry EKG Findings - EKG Comments: EKG Findings:: EKG: Normal sinus rhythm, rate of 91, OK interval 146, QRS duration 88, QTC 457, no ST segment elevation. Medical Decision Making - Medical Decision Making 54-year-old with right lateral chest pain, patient was sent over for angiography to rule out pulmonary embolism. X-ray is performed which is negative for pneumothorax or acute findings. Patient has a mild leukocytosis, stable hemoglobin, normal electrolytes. His CT angiography is performed, negative for pulmonary embolism, does show mediastinal mass and improved adenopathy. Patient for these results, will continue to follow with hematology oncology. Patient can be discharged home with outpatient follow-up. He will continue gabapentin for pain control. - Lab Data Result diagrams: 09/03/20 13:05 09/03/20 13:05 Lab Results 09/03/20 09/03/20 09/03/20 Range/Units 13:05 13:05 13:05 WBC 11.9 H (3.8-10.6) k/uL RBC 4.38 (4.30-5.90) m/uL Hgb 15.4 (13.0-17.5) gm/dL Hct 42.7 (39.0-53.0) % MCV 97.6 (80.0-100.0) fL MCH 35.1 H (25.0-35.0) pg MCHC 36.0 (31.0-37.0) g/dL RDW 13.9 (11.5-15.5) % Plt Count 157 (150-450) k/uL MPV 7.8 Neutrophils % 91 % Lymphocytes % 3 % Monocytes % 4 % Eosinophils % 1 % Basophils % 0 % Neutrophils # 10.9 H (1.3-7.7) k/uL Lymphocytes # 0.4 L (1.0-4.8) k/uL Monocytes # 0.5 (0-1.0) k/uL Eosinophils # 0.1 (0-0.7) k/uL Basophils # 0.0 (0-0.2) k/uL PT 10.3 (9.0-12.0) sec INR 1.0 (<1.2) APTT 23.4 (22.0-30.0) sec Sodium 138 (137-145) mmol/L Potassium 4.2 (3.5-5.1) mmol/L Chloride 105 (98-107) mmol/L Carbon Dioxide 25 (22-30) mmol/L Anion Gap 8 mmol/L BUN 15 (9-20) mg/dL Creatinine 0.85 (0.66-1.25) mg/dL Est GFR (CKD-EPI)AfAm >90 (>60 ml/min/1.73 sqM) Est GFR (CKD-EPI)NonAf >90 (>60 ml/min/1.73 sqM) Glucose 246 H (74-99) mg/dL Calcium 9.3 (8.4-10.2) mg/dL Magnesium 1.9 (1.6-2.3) mg/dL Total Bilirubin 0.9 (0.2-1.3) mg/dL AST 29 (17-59) U/L ALT 26 (4-49) U/L Alkaline Phosphatase 126 (38-126) U/L Total Protein 7.5 (6.3-8.2) g/dL Albumin 4.1 (3.5-5.0) g/dL Disposition Clinical Impression: Chest wall pain Disposition: HOME SELF-CARE Condition: Stable Instructions (If sedation given, give patient instructions): Chest Pain (ED), Costochondritis (ED) Is patient prescribed a controlled substance at d/c from ED?: No Referrals: Yang Meza MD [STAFF PHYSICIAN] - 1-2 days Time of Disposition: 15:22
[2020-09-03 13:34] LABS: Basophils % (A) 0 %; Eosinophils # (A) 0.1 k/uL (0-0.7); Eosinophils % (A) 1 %; HCT 42.7 % (39.0-53.0); HGB 15.4 gm/dL (13.0-17.5); Lymphocytes # (A) 0.4 k/uL (1.0-4.8); Lymphocytes % (A) 3 %; MCH 35.1 pg (25.0-35.0); MCV 97.6 fL (80.0-100.0); Mean Platelet Volume 7.8; Monocytes # (A) 0.5 k/uL (0-1.0); Monocytes % (A) 4 %; Neutrophils # (A) 10.9 k/uL (1.3-7.7); Neutrophils % (A) 91 %; Platelet Count 157 k/uL (150-450); RBC 4.38 m/uL (4.30-5.90); RDW 13.9 % (11.5-15.5); WBC 11.9 k/uL (3.8-10.6)
[2020-09-03 14:03] LABS: ALT 26 U/L (4-49); AST 29 U/L (17-59); African American GFR (CKD) >90 (>60 ml/min/1.73 sqM); Albumin 4.1 g/dL (3.5-5.0); Alkaline Phosphatase 126 U/L (38-126); Anion Gap 8 mmol/L; Blood Urea Nitrogen 15 mg/dL (9-20); Calcium 9.3 mg/dL (8.4-10.2); Carbon Dioxide 25 mmol/L (22-30); Chloride 105 mmol/L (98-107); Glucose 246 mg/dL (74-99); Magnesium 1.9 mg/dL (1.6-2.3); Non-African American GFR(CKD) >90 (>60 ml/min/1.73 sqM); Partial Thromboplastin Time 23.4 sec (22.0-30.0); Potassium 4.2 mmol/L (3.5-5.1); Prothrombin Time 10.3 sec (9.0-12.0); Sodium 138 mmol/L (137-145); Total Bilirubin 0.9 mg/dL (0.2-1.3); Total Protein 7.5 g/dL (6.3-8.2)
[2020-09-03 14:08] VITALS: RESP 20
--- NOTE | 2020-09-03 14:22 | XR ---
EXAMINATION TYPE: XR chest 1V portable DATE OF EXAM: 09/03/2020 HISTORY: Shortness of breath. COMPARISON: 07/13/17 TECHNIQUE: Single view of the chest is submitted. FINDINGS: Demonstrated are scattered senescent parenchymal change. There is no evidence for focal infiltrate. The heart is stable. Hilar and mediastinal structures are within normal limits. Degenerative changes are seen of the dorsal spine. IMPRESSION: 1. Chronic changes without evidence for acute pulmonary disease.
--- NOTE | 2020-09-03 15:18 | CT ---
CT CHEST FOR PULMONARY EMBOLISM. EXAMINATION TYPE: CT angio chest DATE OF EXAM: 09/03/2020 INDICATION: Chest pain, possible blood clot, recent gamma knife surgery CT DLP: 653.8 mGycm, Automated exposure control for dose reduction was used. CONTRAST: Patient injected with 65, wasted 21 mL of Isovue 370. COMPARISON: TECHNIQUE: CT of the chest is performed on a spiral scan at 2 mm thick sections. Study is performed with intravenous contrast timed for evaluation for pulmonary embolism. This will limit additional po rtions of the evaluation. 3-D MIP images reconstructed by the technologist are reviewed on the compu ter in the coronal and sagittal planes. FINDINGS: No persistent filling defects are evident to suggest an acute pulmonary embolism. No mediastinal or hilar adenopathy enlarged by CT criteria is evident. The ascending aorta diameter at the level of the main pulmonary artery is 3.1 cm. The main pulmonary artery diameter at the bifur cation is 2.3 cm. Lung windows are clear. Along the superior mediastinum the right of the trachea is a 5.0 x 2.1x 3.3 cm mass. Neoplasm and mellisa nopathy are within the differential. Previous lymphadenopathy within the mediastinum appears diminish ed over the interval. Limited CT section through the upper abdomen. Mild fatty infiltration of liver is present. IMPRESSIONS: 1. Right superior mediastinal mass and/or adenopathy. 2. Diminished previous adenopathy within the mediastinum. 3. No acute pulmonary embolism. 4. No acute pulmonary process.
[2020-09-03] MEDS ORDERED: HYDROcodone/APAP 7.5-325MG 1 EACH TAB PO ONE (16:23)
[2020-09-03 16:40] VITALS: BP 132/72; PULSE 98; TEMP 98.1
== END 2020-09-03 16:30 | disposition home or self-care (01) ==
LOC: EC 12:10
DX: R07.89 Other chest pain (principal); Z79.899 Other long term (current) drug therapy; Z85.038 Personal history of other malignant neoplasm of large intestine
CPT/HCPCS: 36415; 93005; 80053; 83735; 85025; 85610; 85730; 71045; 71275; 99285; 96374; 96375; J2270; J1642; Q9967

== ENCOUNTER → 2022-03-05 | Outpatient (CLI) | payer BC ==
--- NOTE | 2022-03-06 04:19 | MR ---
EXAMINATION TYPE: MR brain wo/w con DATE OF EXAM: 03/05/2022 COMPARISON: 01/08/2022 HISTORY: F/U post treatment, compare to outside prior, subdural hematoma, colon cancer. CONTRAST: Standard multiplanar, multisequence MRI departmental protocol images were obtained without contrast a nd with 11 mL intravenous Gadavist gadolinium contrast. The ventricles have normal size. There is no mass effect nor midline shift. No sign of intracranial h emorrhage. No evidence of cerebral edema. Diffusion images show no sign of an acute infarct. The sosa -white matter structures have fairly normal signal pattern. No evidence of cerebral edema. There appears to be diffuse increased meningeal enhancement. There is mild meningeal thickening over the posterior middle hemispheres. There is normal enhancement of the venous sinuses. No pathologic in tra-axial enhancement. IMPRESSION: Diffuse meningeal thickening and enhancement which is also present on previous exam and could relate to meningitis or metastatic disease. No evidence of intra-axial metastatic disease. No evidence of ce rebral infarct.
== END | disposition home or self-care (01) ==
LOC: RADMRIMAIN 15:35
PROVIDERS: ATTEND Internal Medicine Hematology & Oncology
DX: C18.7 Malignant neoplasm of sigmoid colon (principal); G93.89 Other specified disorders of brain
CPT/HCPCS: 70553; A9585

== ENCOUNTER 2022-05-29 16:31 | Inpatient (IN) | payer BC ==
[2022-05-29] MEDS ORDERED: NALOXONE 0.4 MG/ML 1 ML VIAL IV PRN (17:25)
--- NOTE | 2022-05-29 17:25 | ED ---
General Adult HPI - General Chief complaint: ENT Stated complaint: Shingles, transfer from [facility] Time Seen by Provider: 05/29/22 16:52 Source: patient, RN/MD, RN notes reviewed Mode of arrival: ambulatory Limitations: no limitations - History of Present Illness Initial comments: Patient is a pleasant 86-year-old male presenting to the emergency Department as a transfer from [facility]. Patient does have history of shingles diagnosed just 2 days ago. Valtrex started yesterday. Patient has worsening symptoms. Patient does not have much pain however he is on fentanyl patch as well as Percocet that was just started 2 weeks ago. Patient does have stage IV colon cancer and is on chemotherapy. Patient denies visual problems. I did speak with transferring physician from [place] who did first seen in the eye with no uptake. She did speak with Dr. Meza who did want patient transferred for IV acyclovir. - Related Data Home Medications Medication Instructions Recorded Confirmed Acetaminophen Tab [Tylenol Tab] 1,000 mg PO Q4H PRN 09/03/20 05/29/22 levETIRAcetam [Keppra] 500 mg PO BID 09/03/20 05/29/22 Doxycycline Hyclate 100 mg PO BID 05/29/22 05/29/22 Ondansetron Odt [Zofran Odt] 4 mg PO Q6H PRN 05/29/22 05/29/22 fentaNYL 25MCG/HR PATCH [Duragesic 1 patch TRANSDERM Q72H 05/29/22 05/29/22 25MCG/HR] oxyCODONE-APAP 5-325MG [Percocet 1 tab PO TID PRN 05/29/22 05/29/22 5-325 mg] valACYclovir HCL [Valacyclovir] 1,000 mg PO BID 05/29/22 05/29/22 Allergies Allergy/AdvReac Type Severity Reaction Status Date / Time ibuprofen Allergy Rash/Hives Verified 05/29/22 17:41 Review of Systems ROS Statement: Those systems with pertinent positive or pertinent negative responses have been documented in the HPI. ROS Other: All systems not noted in ROS Statement are negative. Constitutional: Denies: fever Eyes: Reports: as per HPI ENT: Denies: ear pain Respiratory: Denies: cough Cardiovascular: Denies: chest pain Endocrine: Reports: fatigue Genitourinary: Denies: dysuria Skin: Reports: as per HPI, rash Past Medical History Past Medical History: Cancer Additional Past Medical History / Comment(s): Hx of Stage 4 CA Colon 2015; lung mass--metastatic colon cancer per patient, gamma ray radiation. Shingles to left eye History of Any Multi-Drug Resistant Organisms: None Reported Past Surgical History: Bowel Resection, Cholecystectomy Additional Past Surgical History / Comment(s): 2/3 of liver removed, Past Anesthesia/Blood Transfusion Reactions: No Reported Reaction Past Psychological History: No Psychological Hx Reported Smoking Status: Never smoker Past Alcohol Use History: Rare Past Drug Use History: None Reported - Past Family History Mother Family Medical History: Cancer Additional Family Medical History / Comment(s): Ovarian CA Father Family Medical History: Cancer Additional Family Medical History / Comment(s): Prostate CA General Exam Limitations: no limitations General appearance: alert, in no apparent distress Head exam: Present: normocephalic Eye exam: Present: conjunctival injection (Left-sided) ENT exam: Present: other (Left facial zoster that extends to the upper lip, medial portion.) Neck exam: Present: normal inspection Respiratory exam: Present: normal lung sounds bilaterally Cardiovascular Exam: Present: regular rate, normal rhythm GI/Abdominal exam: Present: soft. Absent: tenderness Extremities exam: Present: normal inspection Neurological exam: Present: alert Psychiatric exam: Present: normal affect, normal mood Skin exam: Present: rash (Left facial zoster) Course Vital Signs 05/29/22 16:41 Temperature 98.0 F Pulse Rate 110 H Respiratory 20 Rate Blood Pressure 125/75 O2 Sat by Pulse 96 Oximetry Medical Decision Making - Medical Decision Making Patient and family are aware of plan. Dr. Nava has been paged for admission of this patient. Case was discussed with Dr. Harding, who will admit his patient. Disposition Clinical Impression: Shingles, Immunocompromised Disposition: ADMITTED IP TO THIS HOSP Is patient prescribed a controlled substance at d/c from ED?: No Time of Disposition: 17:25
[2022-05-29 17:59] LABS: HCT 40.3 % (39.0-53.0); HGB 14.7 gm/dL (13.0-17.5); MCH 34.8 pg (25.0-35.0); MCHC 36.6 g/dL (31.0-37.0); MCV 95.2 fL (80.0-100.0); Mean Platelet Volume 7.6; Platelet Count 111 k/uL (150-450); RBC 4.23 m/uL (4.30-5.90); RDW 13.1 % (11.5-15.5); WBC 3.3 k/uL (3.8-10.6)
[2022-05-29 18:06] LABS: ALT 40 U/L (4-49); AST 58 U/L (17-59); African American GFR (CKD) >90 (>60 ml/min/1.73 sqM); Albumin 3.7 g/dL (3.5-5.0); Alkaline Phosphatase 112 U/L (38-126); Anion Gap 3 mmol/L; Blood Urea Nitrogen 12 mg/dL (9-20); Calcium 8.6 mg/dL (8.4-10.2); Carbon Dioxide 25 mmol/L (22-30); Chloride 109 mmol/L (98-107); Glucose 128 mg/dL (74-99); Non-African American GFR(CKD) >90 (>60 ml/min/1.73 sqM); Sodium 137 mmol/L (137-145); Total Bilirubin 1.3 mg/dL (0.2-1.3); Total Protein 7.4 g/dL (6.3-8.2)
[2022-05-29 18:15] LABS: Prothrombin Time 10.2 sec (9.0-12.0)
[2022-05-29 18:19] LABS: Potassium 4.7 mmol/L (3.5-5.1)
[2022-05-29] MEDS: ACYCLOVIR SODIUM 1,000 MG in SODIUM CHLORIDE 0.9% 250 ML IVPB SCH (18:35)
[2022-05-29 19:52] LABS: Lymphocytes # (M) 0.96 k/uL (1.0-4.8); Neutrophils # (M) 1.85 k/uL (1.3-7.7); Neutrophils % (M) 56 %; Nucleated Red Blood Cells 0 /100 WBC (0-0); Total Cells Counted 100
[2022-05-29 19:53] LABS: RBC Morphology Normal
[2022-05-29] MEDS ORDERED: ONDANSETRON ODT 4 MG TAB PO PRN (20:28)
[2022-05-29] MEDS ORDERED: oxyCODONE-APAP 5-325MG 1 EACH TAB PO PRN (20:28)
[2022-05-29] MEDS: DOXYCYCLINE 100 MG CAP PO SCH (23:55)
[2022-05-29] MEDS: levETIRAcetam 500 MG TAB PO SCH (23:55)
[2022-05-30] MEDS: ACYCLOVIR SODIUM 1,000 MG in SODIUM CHLORIDE 0.9% 250 ML IVPB SCH ×3 (01:44→17:35)
[2022-05-30] MEDS: ACETAMINOPHEN TAB 500 MG TAB PO PRN (09:23)
[2022-05-30] MEDS: DOXYCYCLINE 100 MG CAP PO SCH ×2 (09:24→21:24)
[2022-05-30] MEDS: levETIRAcetam 500 MG TAB PO SCH ×2 (09:24→21:24)
--- NOTE | 2022-05-30 15:04 | P.CONS ---
History of Present Illness - Reason for Consult Consult date: 05/30/22 History of metastatic colon cancer - Chief Complaint Worsening face rash - History of Present Illness Mr. Castro is a 56-year-old gentleman with a past medical history significant for complex course for metastatic colon cancer where he receives care in our clinic along with the [facility] in [place], [place] who most recently received FOLFOX on 05/18/2022 presenting with worsening rash on the face. He initially developed a red painful rash on the cheek with pain radiating to the left upper and lower teeth on 05/27/2022. Picture of this rash was sent to his primary oncologist Dr. Yang Meza who prescribed Valtrex due to concern for shingles. Over the next 1 to 2 days, the rash continued to expand along his left face and began to develop left periorbital edema. He was taking Valtrex as prescribed. Given the concern for worsening of the rash, he initially presented to [facility] for additional management. We were contacted with regards to his worsening rash, and recommended IV acyclovir due to concern for potential ophthalmologic herpes zoster infection. He was subsequently transferred for further care. On presentation, CBC was notable for white blood cell count 3.3 (absolute neutrophil count 1.85, absolute lymphocyte count 0.96), hemoglobin 14.7, platelet count 111. No acute abnormalities were noted on CMP. He was started on acyclovir 1000 mg IV every 8 hours and admitted to medicine for additional management. Ophthalmology was also consulted due to assess for ophthalmologic herpes zoster infection. Since admission, Mr. Castro notes feeling improved with regards to the pain he was experiencing in the teeth. He denied any photophobia or ear pain/hearing loss. He denied any rash elsewhere on the body. He denied any nausea, vomiting, diarrhea, fevers, or chills. Review of Systems 14 point review of systems conducted with pertinent positives negatives noted per HPI Past Medical History Past Medical History: Cancer Additional Past Medical History / Comment(s): Hx of Stage 4 CA Colon 2014; lung mass--metastatic colon cancer per patient, gamma ray radiation. Shingles to left eye History of Any Multi-Drug Resistant Organisms: None Reported Past Surgical History: Bowel Resection, Cholecystectomy Additional Past Surgical History / Comment(s): 2/3 of liver removed, colon resectinon, partial removal R upper Past Anesthesia/Blood Transfusion Reactions: No Reported Reaction Past Psychological History: No Psychological Hx Reported Smoking Status: Never smoker Past Alcohol Use History: Rare Past Drug Use History: None Reported - Past Family History Mother Family Medical History: Cancer Additional Family Medical History / Comment(s): Ovarian CA Father Family Medical History: Cancer Additional Family Medical History / Comment(s): Prostate CA Medications and Allergies Home Medications Medication Instructions Recorded Confirmed Type Acetaminophen Tab [Tylenol Tab] 1,000 mg PO Q4H PRN 09/03/20 05/29/22 History levETIRAcetam [Keppra] 500 mg PO BID 09/03/20 05/29/22 History Doxycycline Hyclate 100 mg PO BID 05/29/22 05/29/22 History Ondansetron Odt [Zofran Odt] 4 mg PO Q6H PRN 05/29/22 05/29/22 History fentaNYL 25MCG/HR PATCH [Duragesic 1 patch TRANSDERM Q72H 05/29/22 05/29/22 History 25MCG/HR] oxyCODONE-APAP 5-325MG [Percocet 1 tab PO TID PRN 05/29/22 05/29/22 History 5-325 mg] valACYclovir HCL [Valacyclovir] 1,000 mg PO BID 05/29/22 05/29/22 History Allergies Allergy/AdvReac Type Severity Reaction Status Date / Time ibuprofen Allergy Rash/Hives Verified 05/29/22 17:41 Physical Exam Vitals: Vital Signs Temp Pulse Pulse Resp BP BP Pulse Ox 05/30/22 13:11 98.3 F 99 20 105/75 97 05/30/22 07:41 98.2 F 82 18 117/81 97 05/30/22 01:44 98.3 F 93 14 123/85 96 05/29/22 20:48 18 05/29/22 20:18 98.9 F 102 H 15 121/84 96 05/29/22 16:41 98.0 F 110 H 20 125/75 96 Intake and Output 05/29/22 05/30/22 05/30/22 22:59 06:59 14:59 Intake Total 240 Balance 240 Intake: Oral 240 Other: Voiding Method Toilet # Voids 1 Weight 114.305 kg - Constitutional lying in bed, no acute distress General appearance: cooperative, no acute distress - EENT vesicular rash noted along the left face extending to the left cheek as well as underneath the left eye with periorbital edema Eyes: EOMI, PERRLA, no photophobia - Respiratory Respiratory: bilateral: CTA - Cardiovascular Rhythm: regular Heart sounds: normal: S1, S2 - Gastrointestinal General gastrointestinal: no distended, normal bowel sounds, soft, no tenderness - Integumentary vesicular rash on the left face as noted above Results CBC & Chem 7: 05/29/22 17:41 05/29/22 17:41 Labs: Abnormal Lab Results - Last 24 Hours (Table) 05/29/22 05/29/22 Range/Units 17:41 17:41 WBC 3.3 L (3.8-10.6) k/uL RBC 4.23 L (4.30-5.90) m/uL Plt Count 111 L (150-450) k/uL Lymphocytes # (Manual) 0.96 L (1.0-4.8) k/uL Chloride 109 H (98-107) mmol/L Glucose 128 H (74-99) mg/dL Assessment and Plan Assessment: Mr. 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 Current Visit: Yes Status: Acute Code(s): C18.9 - MALIGNANT NEOPLASM OF COLON, UNSPECIFIED; C78.00 - SECONDARY MALIGNANT NEOPLASM OF UNSPECIFIED LUNG SNOMED Code(s): 98689962 (2) Shingles Current Visit: Yes Status: Acute Code(s): B02.9 - ZOSTER WITHOUT CO MPLICATIONS SNOMED Code(s): 5603269 Plan: #Progressive facial zoster infection -Initially noted to be on the left cheek with radiating pain to the teeth on the left side on 05/27/2022 -This has spread to the area beneath the eye and is caused swelling around the left eye -On exam, there is a herpetic rash in the trigeminal nerve distribution concerning for herpes zoster infection with concern for herpes zoster ophthalmicus -He does not have any signs or symptoms of [place] Espinoza syndrome at this time -Continue acyclovir 1000 mg IV every 8 hours given worsening of the rash and being immunosuppressed on chemotherapy -Agree with ophthalmology consult for additional management recommendations, appreciate their assistance #Metastatic colon cancer -Originally diagnosed in 2012, became metastatic and April 2015 -His course has been complicated by metastasis to the liver, lungs, and brain -He has had treatment with FOLFOX and FOLFIRI with his treatment regimen being comanaged with the [facility] in [place], [place] -He most recently received FOLFOX on 05/18/2022 -He was due for treatment on 06/01/2022, which will need to be rescheduled given the active herpes zoster infection requiring IV acyclovir
[2022-05-30] MEDS ORDERED: ARTIFICIAL TEARS-HYPROMELLOSE DROPS 15 ML BTL BOTH EYES PRN (15:19)
[2022-05-30] MEDS ORDERED: TROPICAMIDE 1% OPHTH DROPS 2 ML BTL BOTH EYES ONE (15:19)
[2022-05-30] MEDS ORDERED: PROPARACAINE 0.5% OPHTH DROPS 15 ML BTL BOTH EYES STA (15:19)
[2022-05-30] MEDS: PHENYLEPHRINE 2.5% OPHTH DRP 2ML BOTH EYES SCH (17:33)
--- NOTE | 2022-05-30 17:37 | P.CON ---
Consult Note - . Consult date: 05/30/22 Assessment/Plan:: This is 56 y/o male with a 5 year history of colon cancer with ongoing cancer treatment who presented to the ER in [place] with left facial swelling and irritation. This was presumptively considered to be HZV and because of his ongoing cancer treatment was recommended for IV acyclovir treatment. His area of involvement is CN V-II, primarily from cheek and lower portion of face. He has not had the Shingrix vaccination, yet. There is some eyelid swelling noted. He denies any ocular discomfort and vision remains largely unchanged. He has no previous eye problems or ongoing ophthalmic treatment, and there is no prior eye surgery. 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 Va: w/o correction 20/20 OD, 20/20 OS Ext: left facial swelling with macular patches, but no erupting or open vesicles IOP: 11 mm Hg OD, 18 mm Hg OS @ 1650 with Tonopen CF: full EOM: Full D&V, no pain Eyelid: no open lesions, moderate swelling and tenderness Conj: white and quiet OD, mild conjunctival injection. no fluorescein uptake Cornea: Clear OU, no fluorescein uptake AC: deep & quiet Iris: blue without pathology Dilated: 2.5% neosynephrine & 1% tropicamide @ 1655 Vit: clear Optic nerve: s/f/p C:D : 0.10 OU Macula: +FLR. dim quiet Vessels: 0.67 Periphery: no pathology 360 except old quiescent scar @ 3 o/c OS A: HZV face, CNV-II, no ocular involvement noted P: Recommend aggressive lubrication of eyes, especially of left. Will add topical erythromycin ointment to eyelids on left to reduce local irritation - will not hurt, except to blur vision. Recommend ophthalmology follow up after discharge. Call for any additional questions. Thank you for the consultation.
[2022-05-30] MEDS: ERYTHROMYCIN 5 MG/GM OPHTH OINT 3.5 GM TUBE LEFT EYE SCH (21:24)
[2022-05-31] MEDS: ERYTHROMYCIN 5 MG/GM OPHTH OINT 3.5 GM TUBE LEFT EYE SCH ×3 (01:40→16:30)
[2022-05-31] MEDS: ACYCLOVIR SODIUM 1,000 MG in SODIUM CHLORIDE 0.9% 250 ML IVPB SCH ×3 (01:40→18:18)
[2022-05-31] MEDS: DOXYCYCLINE 100 MG CAP PO SCH ×2 (08:33→20:45)
[2022-05-31] MEDS: levETIRAcetam 500 MG TAB PO SCH ×2 (08:33→20:45)
[2022-05-31 09:02] LABS: Basophils # (A) 0.02 X 10*3/uL (0.00-0.10); Basophils % (A) 0.6 %; Eosinophils # (A) 0.11 X 10*3/uL (0.04-0.35); HCT 40.4 % (39.6-50.0); HGB 14.4 g/dL (13.0-17.0); Immature Grans, Automated 0.3 %; Lymphocytes % (A) 30.5 %; MCH 33.5 pg (27.0-32.0); MCHC 35.6 g/dL (32.0-37.0); Monocytes # (A) 0.77 X 10*3/uL (0.20-1.00); Monocytes % (A) 21.3 %; NRBC Per 100 WBC 0 /100 WBCS (0.0-0.0); Neutrophils % (A) 44.3 %; Platelet Count 125 X 10*3/uL (140-440); RDW 12.7 % (11.5-14.5); WBC 3.61 X 10*3/uL (4.50-10.00)
[2022-05-31 09:38] LABS: Albumin 3.7 g/dL (3.8-4.9); Albumin/Globulin Ratio 1.12 (1.60-3.17); Anion Gap 8.9 mmol/L (10.00-18.00); Blood Urea Nitrogen 9.9 mg/dL (9.0-27.0); Calcium 9.4 mg/dL (8.7-10.3); Carbon Dioxide 22.1 mmol/L (20.0-27.5); Globulin 3.3 g/dL (1.6-3.3); Non-African American GFR(CKD) 95.8 (60.0-200.0); Potassium 4.1 mmol/L (3.5-5.5); Total Bilirubin 0.9 mg/dL (0.30-1.20)
--- NOTE | 2022-05-31 10:04 | P.CONS ---
History of Present Illness - Reason for Consult Consult date: 05/30/22 Shingles Requesting physician: Anthony Harding - Chief Complaint Left-sided facial redness swelling and pain x few days - History of Present Illness Patient is a 56-year-old male with a past medical history significant for colon cancer on chemotherapy patient presented to the [facility] for evaluation of left facial swelling and irritation patient symptoms started on 05/27/2022 apparently the picture of his rash was sent to his oncologist who prescribed Valtrex concerning for shingles over the next 1 to 2 days the patient has developed increasing swelling and left periorbital edema with concern for worsening of his shingles the patient was sent to the ER and subsequently transferred to this facility patient on presentation to the hospital has been afebrile and no fever has been recorded subsequently patient did have mild leukopenia kidney function has been normal patient was started on IV acyclovir infectious disease was consulted for further management of antiviral therapy. Patient has been complaining of pain to the left side of the face in the distribution of the rash to be sharp intensity 7-8 out of 10 no radiation denies high-grade fever or chills or any drainage Review of Systems Positive point has been mentioned in the HPI rest of the systems are negative Past Medical History Past Medical History: Cancer Additional Past Medical History / Comment(s): Hx of Stage 4 CA Colon 2014; lung mass--metastatic colon cancer per patient, gamma ray radiation. Shingles to left eye History of Any Multi-Drug Resistant Organisms: None Reported Past Surgical History: Bowel Resection, Cholecystectomy Additional Past Surgical History / Comment(s): 2/3 of liver removed, colon resectinon, partial removal R upper Past Anesthesia/Blood Transfusion Reactions: No Reported Reaction Past Psychological History: No Psychological Hx Reported Smoking Status: Never smoker Past Alcohol Use History: Rare Past Drug Use History: None Reported - Past Family History Mother Family Medical History: Cancer Additional Family Medical History / Comment(s): Ovarian CA Father Family Medical History: Cancer Additional Family Medical History / Comment(s): Prostate CA Medications and Allergies Home Medications Medication Instructions Recorded Confirmed Type Acetaminophen Tab [Tylenol Tab] 1,000 mg PO Q4H PRN 09/03/20 05/29/22 History levETIRAcetam [Keppra] 500 mg PO BID 09/03/20 05/29/22 History Ondansetron Odt [Zofran Odt] 4 mg PO Q6H PRN 05/29/22 05/29/22 History fentaNYL 25MCG/HR PATCH [Duragesic 1 patch TRANSDERM Q72H 05/29/22 05/29/22 History 25MCG/HR] oxyCODONE-APAP 5-325MG [Percocet 1 tab PO TID PRN 05/29/22 05/29/22 History 5-325 mg] valACYclovir HCL [Valtrex] 1,000 mg PO Q8HR #21 tablet 06/02/22 Rx Allergies Allergy/AdvReac Type Severity Reaction Status Date / Time ibuprofen Allergy Rash/Hives Verified 05/29/22 17:41 Physical Exam Vitals: Vital Signs Temp Pulse Pulse Resp BP BP Pulse Ox 05/30/22 07:41 98.2 F 82 18 117/81 97 05/30/22 01:44 98.3 F 93 14 123/85 96 05/29/22 20:48 18 05/29/22 20:18 98.9 F 102 H 15 121/84 96 05/29/22 16:41 98.0 F 110 H 20 125/75 96 Intake and Output 05/29/22 05/30/22 05/30/22 22:59 06:59 14:59 Intake Total 240 Balance 240 Intake: Oral 240 Other: Voiding Method Toilet # Voids 1 Weight 114.305 kg GENERAL DESCRIPTION: Middle-aged male lying in bed, no distress. No tachypnea or accessory muscle of respiration use. HEENT: Left-sided facial rash mostly involving the maxillary area with a pe riorbital swelling no open wound or any drainage NECK: Trachea central, no thyromegaly. LUNGS: Unlabored breathing. Clear to auscultation anteriorly. No wheeze or crackle. HEART: S1, S2, regular rate and rhythm. No loud murmur ABDOMEN: Soft, no tenderness , guarding or rigidity, no organomegaly EXTREMITIES: No edema of feet. SKIN: No rash, no masses palpable. NEUROLOGICAL: The patient is awake, alert, oriented x3, mood and affect normal. Results CBC & Chem 7: 05/31/22 05:45 05/31/22 05:45 Labs: Abnormal Lab Results - Last 24 Hours (Table) 12/31/22 12/31/22 Range/Units 17:41 17:41 WBC 3.3 L (3.8-10.6) k/uL RBC 4.23 L (4.30-5.90) m/uL Plt Count 111 L (150-450) k/uL Lymphocytes # (Manual) 0.96 L (1.0-4.8) k/uL Chloride 109 H (98-107) mmol/L Glucose 128 H (74-99) mg/dL Assessment and Plan (1) Shingles Current Visit: Yes Status: Acute Priority: High Code(s): B02.9 - ZOSTER WITHOUT COMPLICATIONS SNOMED Code(s): 3698673 Plan: 1patient with left sided herpes zoster involving the maxillary division of the trigeminal nerve in this patient who did have a extensive periorbital swelling however the patient do not have any fever or elevated white count or significant redness to be suspicious for secondary bacterial cellulitis. 2patient to continue with IV acyclovir 10 mg/kg every 8 hour while watching his kidney function closely. 3await ophthalmology evaluation as the patient did have significant periorbital swelling We will follow on clinical condition and cultures to further adjust medication if needed Thank you for this consultation we will follow the patient along with you Time with Patient: Greater than 30
--- NOTE | 2022-05-31 13:11 | P.PN ---
Subjective Progress Note Date: 05/31/22 Principal diagnosis: metastatic colon cancer -No acute events overnight -No ocular herpes zoster involvement per ophthalmology evaluation -They recommended lubrication of the eyes along with topical erythromycin, appreciate their assistance -Periorbital edema has decreased today. He denies any new signs or symptoms Objective - Vital Signs Vital signs: Vital Signs Temp 98.4 F 05/31/22 07:39 Pulse 92 05/31/22 07:39 Resp 16 05/31/22 07:39 BP 126/88 05/31/22 07:39 Pulse Ox 97 05/31/22 07:39 FiO2 Intake & Output 05/30/22 05/31/22 05/31/22 18:59 06:59 18:59 Intake Total 1500 360 Output Total 120 Balance 1500 240 Intake: Intake, IV Titration 500 Amount Acyclovir Sodium 1,000 mg 500 In Sodium Chloride 0.9% 250 ml @ 270 mls/hr IVPB Q8H [facility] Rx#:[id number] Oral 1000 360 Output: Urine 120 Other: Voiding Method Toilet # Voids 2 - Constitutional General appearance: Present: cooperative, no acute distress - EENT EENT Comment(s): decreased left periorbital edema on today's exam - Respiratory Respiratory: bilateral: CTA - Cardiovascular Rhythm: regular - Gastrointestinal General gastrointestinal: Present: normal bowel sounds, soft. Absent: distended, tenderness - Integumentary Integumentary Comment(s): vesicular rash on the left side of the face is about the same to mildly improved with decreased erythema - Labs CBC & Chem 7: 05/31/22 05:45 05/31/22 05:45 Labs: Abnormal Lab Results - Last 24 Hours (Table) 05/31/22 05/31/22 Range/Units 05:45 05:45 WBC 3.61 L (4.50-10.00) X 10*3/uL RBC 4.30 L (4.40-5.60) X 10*6/uL MCH 33.5 H (27.0-32.0) pg Plt Count 125 L (140-440) X 10*3/uL Neutrophils # 1.60 L (1.80-7.70) X 10*3/uL Anion Gap 8.90 L (10.00-18.00) mmol/L BUN/Creatinine Ratio 11.00 L (12.00-20.00) Ratio AST 41 H (14-35) U/L Albumin 3.7 L (3.8-4.9) g/dL Albumin/Globulin Ratio 1.12 L (1.60-3.17) g/dL Assessment and Plan Assessment: Mr. 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 Current Visit: Yes Status: Acute Code(s): C18.9 - MALIGNANT NEOPLASM OF COLON, UNSPECIFIED; C78.00 - SECONDARY MALIGNANT NEOPLASM OF UNSPECIFIED LUNG SNOMED Code(s): 05490301 (2) Shingles Current Visit: Yes Status: Acute Code(s): B02.9 - ZOSTER WITHOUT COMPLICATIONS SNOMED Code(s): 1843108 Plan: #Progressive facial zoster infection -Initially noted to be on the left cheek with radiating pain to the teeth on the left side on 05/27/2022 -This has spread to the area beneath the eye and is caused swelling around the left eye -On exam, there is a herpetic rash in the trigeminal nerve distribution concerning for herpes zoster infection with initial concern for herpes zoster ophthalmicus -He does not have any signs or symptoms of [place] Espinoza syndrome at this time -No ocular involvement per ophthalmology with recommendation for lubrication and topical erythromycin. I appreciate their assistance -Continue acyclovir 1000 mg IV every 8 hours given worsening of the rash and being immunosuppressed on chemotherapy -ID has been consulted regarding management of antiviral therapy, appreciate their assistance #Metastatic colon cancer -Originally diagnosed in 2012, became metastatic and April 2015 -His course has been complicated by metastasis to the liver, lungs, and brain -He has had treatment with FOLFOX and FOLFIRI with his treatment regimen being comanaged with the [facility] in [place], [place] -He most recently received FOLFOX on 05/18/2022 -He was due for treatment on 06/01/2022, which will need to be rescheduled given the active herpes zoster infection requiring IV acyclovir
--- NOTE | 2022-05-31 14:51 | P.PN ---
Subjective Progress Note Date: 05/31/22 Principal diagnosis: Facial zoster The patient is a 56-year-old male with a past medical history significant for colon cancer on chemotherapy last chemo was about 2 weeks before presentation to the hospital. Admitted to hospital for left maxillary division of trigeminal nerve zoster On today's evaluation that is 05/31/2022, the patient denies having any fever and chills, the patient left sided facial swelling and redness has slightly decreased, pain has decreased in intensity control of the pain medication, nausea no vomiting no abdominal pain or diarrhea Objective - Vital Signs Vital signs: Vital Signs Temp 98.3 F 05/31/22 13:28 Pulse 89 05/31/22 13:28 Resp 18 05/31/22 13:28 BP 116/80 05/31/22 13:28 Pulse Ox 97 05/31/22 13:28 FiO2 Intake & Output 05/30/22 05/31/22 05/31/22 18:59 06:59 18:59 Intake Total 1500 360 Output Total 120 Balance 1500 240 Intake: Intake, IV Titration 500 Amount Acyclovir Sodium 1,000 mg 500 In Sodium Chloride 0.9% 250 ml @ 270 mls/hr IVPB Q8H [facility] Rx#:[id number] Oral 1000 360 Output: Urine 120 Other: Voiding Method Toilet # Voids 2 - Exam GENERAL DESCRIPTION: A middle-age male lying in bed in no distress HEENT: Left-sided facial swelling and rash has decreased in intensity no new rash RESPIRATORY SYSTEM: Unlabored breathing , decreased breath sounds at bases HEART: S1 S2 regular rate and rhythm , ABDOMEN: Soft , no tenderness EXTREMITIES: No edema feet - Labs CBC & Chem 7: 05/31/22 05:45 05/31/22 05:45 Labs: Abnormal Lab Results - Last 24 Hours (Table) 05/31/22 05/31/22 Range/Units 05:45 05:45 WBC 3.61 L (4.50-10.00) X 10*3/uL RBC 4.30 L (4.40-5.60) X 10*6/uL MCH 33.5 H (27.0-32.0) pg Plt Count 125 L (140-440) X 10*3/uL Neutrophils # 1.60 L (1.80-7.70) X 10*3/uL Anion Gap 8.90 L (10.00-18.00) mmol/L BUN/Creatinine Ratio 11.00 L (12.00-20.00) Ratio AST 41 H (14-35) U/L Albumin 3.7 L (3.8-4.9) g/dL Albumin/Globulin Ratio 1.12 L (1.60-3.17) g/dL Assessment and Plan (1) Shingles Current Visit: Yes Status: Acute Priority: High Code(s): B02.9 - ZOSTER WITHOUT COMPLICATIONS SNOMED Code(s): 6313637 Plan: 1patient with left sided herpes zoster involving the maxillary division of the trigeminal nerve in this patient who did have a extensive periorbital swelling however the patient do not have any fever or elevated white count or significant redness to be suspicious for secondary bacterial cellulitis. 2patient seemed to have shown clinical improvement and will continue with IV acyclovir 10 mg/kg every 8 hour while watching his kidney function closely. Time with Patient: Less than 30
[2022-05-31] MEDS: PHENYLEPHRINE 2.5% OPHTH DRP 2ML BOTH EYES SCH (16:47)
[2022-05-31] MEDS: ACETAMINOPHEN TAB 500 MG TAB PO PRN (20:46)
[2022-06-01] MEDS: ERYTHROMYCIN 5 MG/GM OPHTH OINT 3.5 GM TUBE LEFT EYE SCH ×3 (01:06→16:13)
[2022-06-01] MEDS: ACYCLOVIR SODIUM 1,000 MG in SODIUM CHLORIDE 0.9% 250 ML IVPB SCH ×3 (01:06→17:28)
[2022-06-01] MEDS: levETIRAcetam 500 MG TAB PO SCH ×2 (08:52→20:22)
[2022-06-01] MEDS: DOXYCYCLINE 100 MG CAP PO SCH ×2 (08:52→20:22)
[2022-06-01] MEDS: ACETAMINOPHEN TAB 500 MG TAB PO PRN ×2 (08:55→18:36)
--- NOTE | 2022-06-01 10:27 | PN ---
PROGRESS NOTE A 56-year-old white male with shingles. He appears to be improving with IV acyclovir. Otherwise, he appears stable. PHYSICAL EXAMINATION: VITAL SIGNS: Reviewed. CARDIOVASCULAR: S1, S2. LUNGS: Clear. GI: Soft . Left facial erythema, pustules. Remains on doxycycline, erythromycin, acyclovir, Keppra, Zofran, Percocet. PROGNOSIS: Guarded. FOLLOWUP: Next 24 to 48 hours. MMODL / IJN: [id number] /
--- NOTE | 2022-06-01 10:27 | HP ---
HISTORY AND PHYSICAL HISTORY OF PRESENT ILLNESS: A 56-year-old male with past medical history of colon cancer on chemotherapy with left facial swelling, irritations, he is started on Valtrex 2 days prior to admission. The patient does not improve started on IV acyclovir. Infectious Disease for antiviral therapy 7 to 01/06 radiation. No high-grade fever or chills. FAMILY HISTORY: Father with cancer of the prostate. HOME MEDICINES: Include, 1. Tylenol. 2. Keppra 500 b.i.d. 3. Doxycycline 100 b.i.d. 4. Fentanyl patch every 72 hours. 5. Percocet 5/325 every 6 to 8 hours. 6. Valacyclovir 1000 b.i.d. ALLERGIES: Ibuprofen. PHYSICAL EXAMINATION: VITAL SIGNS: Temperature 98, pulse 82 to 103, respiratory rate 15 to 20, blood pressure 117 to 123 over 70s to 80s, pulse ox is 97% to 100%. CARDIOVASCULAR: S1, S2. LUNGS: Clear. GI: Soft. HEMATOLOGY: Negative Homans. PSYCH: Fair mood and affect. to the entire face with redness, swelling below the eye. LABORATORY DATA: Labs show white count 3.6, platelets 125. IMPRESSION: 1. Left-sided herpes zoster. 2. trigeminal nerve. 3. Excessive periorbital swelling, not suspicious for secondary cellulitis. He is on IV acyclovir every 8 hours. 4. Left kidney function. PROGNOSIS: Guarded. MMODL / IJN: [id number] /
[2022-06-01] MEDS: PHENYLEPHRINE 2.5% OPHTH DRP 2ML BOTH EYES SCH (16:13)
[2022-06-01] MEDS: methylPREDNISolone SOD SUCCI 40 MG/ML 1 ML VIAL IV SCH (18:33)
--- NOTE | 2022-06-02 00:27 | PN ---
PROGRESS NOTE SUBJECTIVE: This is a 56-year-old white male, shingles on left facial area, severe swelling around the eye. IV Solu-Medrol has been ordered 40 QA due to increasing swelling around the eye, antibiotic eyedrops are being ordered as well as antivirals. OBJECTIVE: CARDIOVASCULAR: S1, S2. LUNGS: Clear. GI: Soft. HEMATOLOGY: Negative for Homans. PSYCH: Fair mood and affect. INTEGUMENT: Healing pustules on the left facial area. Continue with IV acyclovir, IV Solu-Medrol. Possible discharge home in 24-48 hours. Prognosis guarded. MMODL / IJN: [id number] /
[2022-06-02] MEDS: methylPREDNISolone SOD SUCCI 40 MG/ML 1 ML VIAL IV SCH ×3 (01:18→17:14)
[2022-06-02] MEDS: ERYTHROMYCIN 5 MG/GM OPHTH OINT 3.5 GM TUBE LEFT EYE SCH ×3 (01:18→16:23)
[2022-06-02] MEDS: ACYCLOVIR SODIUM 1,000 MG in SODIUM CHLORIDE 0.9% 250 ML IVPB SCH ×3 (01:18→17:16)
[2022-06-02 08:31] VITALS: RESP 18
[2022-06-02] MEDS: levETIRAcetam 500 MG TAB PO SCH (08:58)
[2022-06-02] MEDS: DOXYCYCLINE 100 MG CAP PO SCH (08:58)
--- NOTE | 2022-06-02 13:02 | P.PN ---
Subjective Progress Note Date: 06/01/22 Principal diagnosis: herpes zoster, metastatic colon cancer on treatment -No acute events overnight -No ocular herpes zoster involvement per ophthalmology evaluation -They recommended lubrication of the eyes along with topical erythromycin, appreciate their assistance -Pt reports worsening in left periorbital edema since yesterday, and pain to left ear and occipital and frontal scalp pain. No reported visual disturbances Objective - Vital Signs Vital signs: Vital Signs Temp 98.0 F 06/01/22 13:09 Pulse 77 06/01/22 13:09 Resp 18 06/01/22 13:09 BP 103/79 06/01/22 13:09 Pulse Ox 96 06/01/22 13:09 FiO2 Intake & Output 05/31/22 06/01/22 06/01/22 18:59 06:59 18:59 Intake Total 740 Balance 740 Intake: Oral 740 Other: Voiding Method Toilet # Voids 2 - Constitutional General appearance: Present: average body habitus, no acute distress - EENT EENT Comment(s): diffuse left periortibal edema present, no eye drainage noted. No edema, drainage, erythema or tenderness noted to left external ear canal Eyes: Present: anicteric sclerae, EOMI ENT: Present: hearing grossly normal - Neck Neck: Present: normal ROM - Respiratory Respiratory: bilateral: CTA - Cardiovascular Rhythm: regular Heart sounds: normal: S1, S2 Abnormal Heart Sounds: Absent: systolic murmur, diastolic murmur, rub, S3 Gallop, S4 Gallop, click, other - Integumentary Integumentary Comment(s): erythema, and dusky coloration to infraorbital area, with scabbing present, consistent with healing shingles infection. 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 Current Visit: Yes Status: Acute Priority: High Code(s): C18.9 - MALIGNANT NEOPLASM OF COLON, UNSPECIFIED; C78.00 - SECONDARY MALIGNANT NEOPLASM OF UNSPECIFIED LUNG SNOMED Code(s): 92483647 (3) Shingles Current Visit: Yes Status: Acute Priority: High Code(s): B02.9 - ZOSTER WITHOUT COMPLICATIONS SNOMED Code(s): 3115841 Plan: #Progressive facial zoster infection -Initially noted to be on the left cheek with radiating pain to the teeth on the left side on 05/27/2022 -This has spread to the area beneath the eye and is caused swelling around the left eye -On exam, there is a herpetic rash in the trigeminal nerve distribution concerning for herpes zoster infection with initial concern for herpes zoster ophthalmicus -He does not have any signs or symptoms of Sarina Espinoza syndrome at this time -No ocular involvement per ophthalmology with recommendation for lubrication and topical erythromycin. I appreciate their assistance -Continue acyclovir 1000 mg IV every 8 hours given worsening of the rash and being immunosuppressed on chemotherapy -Spoke with ID, plan to continue patient on IV antiviral for another 24 hours, and to discharge patient tomorrow on oral antivirals #Metastatic colon cancer -Originally diagnosed in 2012, became metastatic in April 2015 -His course has been complicated by metastasis to the liver, lungs, and brain -He has had treatment with FOLFOX and FOLFIRI with his treatment regimen being comanaged with the [facility] in [place], [place] -He most recently received FOLFOX on 05/18/2022 -He was due for treatment on 06/01/2022, which will need to be rescheduled given the active herpes zoster infection requiring IV and oral acyclovir. Will schedule f/u apt in clinic prior to next chemo on 06/15 to reevaluate herpe zoster infection prior to receiving treatment
--- NOTE | 2022-06-02 13:50 | P.PN ---
Subjective Progress Note Date: 06/01/22 Principal diagnosis: Facial zoster The patient is a 56-year-old male with a past medical history significant for colon cancer on chemotherapy last chemo was about 2 weeks before presentation to the hospital. Admitted to hospital for left maxillary division of trigeminal nerve zoster On today's evaluation that is 06/01/2022, the patient remains to be afebrile, the patient left sided facial swelling and rash has decreased in intensity, no new rash has been noticed, pain is currently controlled with pain medication, nausea no vomiting no abdominal pain or diarrhea Objective - Vital Signs Vital signs: Vital Signs Temp 98.1 F 06/01/22 07:39 Pulse 79 06/01/22 07:39 Resp 18 06/01/22 07:39 BP 124/84 06/01/22 07:39 Pulse Ox 96 06/01/22 07:39 FiO2 Intake & Output 05/31/22 06/01/22 06/01/22 18:59 06:59 18:59 Intake Total 740 Balance 740 Intake: Oral 740 Other: Voiding Method Toilet # Voids 2 - Exam GENERAL DESCRIPTION: A middle-age male lying in bed in no distress HEENT: Left-sided facial swelling and rash has decreased in intensity no new rash RESPIRATORY SYSTEM: Unlabored breathing , decreased breath sounds at bases HEART: S1 S2 regular rate and rhythm , ABDOMEN: Soft , no tenderness EXTREMITIES: No edema feet - Labs CBC & Chem 7: 05/31/22 05:45 05/31/22 05:45 Assessment and Plan (1) Shingles Current Visit: Yes Status: Acute Priority: High Code(s): B02.9 - ZOSTER WITHOUT COMPLICATIONS SNOMED Code(s): 9639009 Plan: 1patient with left sided herpes zoster involving the maxillary division of the trigeminal nerve in this patient who did have a extensive periorbital swelling however the patient do not have any fever or elevated white count or significant redness to be suspicious for secondary bacterial cellulitis. 2patient is slowly clinically improving and will continue with IV acyclovir 10 mg/kg every 8 hour while watching his kidney function closely which is currently normal. Time with Patient: Less than 30
--- NOTE | 2022-06-02 13:51 | P.PN ---
Subjective Progress Note Date: 06/02/22 Principal diagnosis: Facial zoster The patient is a 56-year-old male with a past medical history significant for colon cancer on chemotherapy last chemo was about 2 weeks before presentation to the hospital. Admitted to hospital for left maxillary division of trigeminal nerve zoster On today's evaluation that is 06/02/2022, the patient continues to be afebrile, the patient left sided facial swelling and rash has decreased in intensity, patient did complain of some sharp and burning pain but no worsening, no nausea no vomiting no abdominal pain or diarrhea Objective - Vital Signs Vital signs: Vital Signs Temp 97.7 F 06/02/22 07:43 Pulse 90 06/02/22 07:43 Resp 18 06/02/22 07:43 BP 112/76 06/02/22 07:43 Pulse Ox 97 06/02/22 07:43 FiO2 Intake & Output 06/01/22 06/02/22 06/02/22 18:59 06:59 18:59 Other: Voiding Method Toilet # Voids 1 1 - Exam GENERAL DESCRIPTION: A middle-age male lying in bed in no distress HEENT: Left-sided facial swelling and rash has decreased in intensity , able to open his eye RESPIRATORY SYSTEM: Unlabored breathing , decreased breath sounds at bases HEART: S1 S2 regular rate and rhythm , ABDOMEN: Soft , no tenderness EXTREMITIES: No edema feet - Labs CBC & Chem 7: 05/31/22 05:45 05/31/22 05:45 Assessment and Plan (1) Shingles Current Visit: Yes Status: Acute Priority: High Code(s): B02.9 - ZOSTER WITHOUT COMPLICATIONS SNOMED Code(s): 6759764 Plan: 1patient with left sided herpes zoster involving the maxillary division of the trigeminal nerve in this patient who did have a extensive periorbital swelling however the patient do not have any fever or elevated white count or significant redness to be suspicious for secondary bacterial cellulitis. 2patient has shown clinical improvement on IV acyclovir, plan is to finish ther apy with oral Valtrex prescription was sent to the pharmacy Time with Patient: Less than 30
[2022-06-02 15:47] VITALS: BP 126/88; PULSE 106; TEMP 98.2
[2022-06-02] MEDS ORDERED: INFLUENZA VACC (6 MOS-64 YRS) 60 MCG/0.5 ML SYRINGE IM ONE (16:17)
[2022-06-02] MEDS: PHENYLEPHRINE 2.5% OPHTH DRP 2ML BOTH EYES SCH (16:23)
--- NOTE | 2022-06-02 17:47 | P.PN ---
Subjective Progress Note Date: 06/02/22 Principal diagnosis: herpes zoster, metastatic colon cancer on treatment Pt reports improvement in left periorbital edema since yesterday. Denies visual disturbances. Reports persisting nerve pain along left jaw, but improving left ear pain. Reports he is eating and drinking ok and is agreeable with discharge for today Objective - Vital Signs Vital signs: Vital Signs Temp 97.7 F 06/02/22 07:43 Pulse 90 06/02/22 07:43 Resp 18 06/02/22 07:43 BP 112/76 06/02/22 07:43 Pulse Ox 97 06/02/22 07:43 FiO2 Intake & Output 06/01/22 06/02/22 06/02/22 18:59 06:59 18:59 Other: Voiding Method Toilet # Voids 1 1 - Constitutional General appearance: Present: cooperative, no acute distress - EENT Eyes: Present: anicteric sclerae, EOMI ENT: Present: hearing grossly normal - Respiratory Respiratory: bilateral: CTA - Cardiovascular Rhythm: regular Heart sounds: normal: S1, S2 Abnormal Heart Sounds: Absent: systolic murmur, diastolic murmur, rub, S3 Gallop, S4 Gallop, click, other - Gastrointestinal General gastrointestinal: Present: soft. Absent: tenderness - Integumentary Integumentary Comment(s): improving erythema and edema to left periorbital region, no purulent discharge noted - Neurologic Neurologic Comment(s): grossly Neurologic: Present: CNII-XII intact - Musculoskeletal Musculoskeletal: Present: strength equal bilaterally - Psychiatric Psychiatric: Present: A&O x's 3, appropriate affect, intact judgment & insight - Labs CBC & Chem 7: 05/31/22 05:45 05/31/22 05:45 Assessment and Plan (1) Immunocompromised Current Visit: Yes Status: Acute Priority: High Code(s): D84.9 - IMMUNODEFICIENCY, UNSPECIFIED SNOMED Code(s): 177803763 (2) 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 This has spread to the area beneath the eye and is caused swelling around the left eye. -He does not have any signs or symptoms of Ashton Espinoza syndrome at this time -No ocular involvement per ophthalmology with recommendation for lubrication and topical erythromycin. Appreciate their assistance -Continued improvement on current antiviral treatment. -Pt is cleared from Oncology standpoint, once cleared by ID. Continue pt on oral antivirals per ID #Metastatic colon cancer -Originally diagnosed in 2012, became metastatic in April 2015, metastasis to the liver, lungs, and brain -He has had treatment with FOLFOX and FOLFIRI with his treatment regimen being co-managed with the [facility] in [place], [place] -He most recently received FOLFOX on 05/18/2022 -He was due for treatment on 06/01/2022, which will need to be rescheduled given the active herpes zoster infection requiring IV and oral acyclovir. -Pt scheduled for next chemo 06/15/22. Will schedule f/u apt in clinic prior to next chemo to reevaluate herpe zoster infection prior to receiving chemo treatment. Pt is in agreement with plan of care attests: I have seen and examined pt, performed H&P, developed impression and plan of care. Discussed with dictator. Agree with documentation, dictated as a scribe
--- NOTE | 2022-06-02 20:20 | PN ---
PROGRESS NOTE SUBJECTIVE: A 56-year-old white male with immunocompromisation secondary to colon cancer, metastatic, to the lung. He has acute herpes zoster infection to the face. He is on IV acyclovir. The shingle was on the left facial area, swelling on the eye, started him on IV steroids yesterday 40 q.8h, which appears to be improving the swelling around the eye. Integument, has healing pressures on left facial area. OBJECTIVE: VITAL SIGNS: Stable, afebrile. CARDIOVASCULAR: GI: Soft, nontender. HEMATOLOGY: Negative Homans. PSYCH: Fair mood and affect. Continue with IV acyclovir, IV Solu-Medrol. Continue on oral antibiotic drops for the eye. Possible discharge home tomorrow if cleared by Oncology and Infectious Disease. MMODL / IJN: [id number] /
== END 2022-06-02 19:59 | disposition home or self-care (01) | DRG 596 ==
LOC: EC 16:31 → 5NMEDONC 17:25
PROVIDERS: ADMIT Family Medicine; ATTEND Family Medicine
DX: B02.9 Zoster without complications (principal); C18.9 Malignant neoplasm of colon, unspecified; C78.00 Secondary malignant neoplasm of unspecified lung; C78.5 Secondary malignant neoplasm of large intestine and rectum; D84.9 Immunodeficiency, unspecified; Z85.038 Personal history of other malignant neoplasm of large intestine; Z79.899 Other long term (current) drug therapy; Z86.19 Personal history of other infectious and parasitic diseases; Z88.6 Allergy status to analgesic agent; Z87.19 Personal history of other diseases of the digestive system; Z90.49 Acquired absence of other specified parts of digestive tract
CPT/HCPCS: 80053; 85025; 85610; 90686; 99284